=== PATIENT | male | born 1955 | race Caucasian/White ===

== ENCOUNTER 2018-11-09 06:19 | Day surgery (SDC) | payer MEDICARE, SELFPAY ==
--- NOTE | 2018-11-03 14:52 | EKG12_ITS ---
Test Reason : Blood Pressure : / mmHG Vent. Rate : 072 BPM Atrial Rate : 072 BPM P-R Int : 166 ms QRS Dur : 092 ms QT Int : 390 ms P-R-T Axes : 052 035 072 degrees QTc Int : 427 ms Normal sinus rhythm Normal ECG Confirmed by ALEKSANDR OHGAN ([id number]), legal editor PATITO MARIA ([id number]) on 11/04/2018 1:38:14 PM Referred By: Linda Bond Confirmed By:ALEKSANDR HOGAN
--- NOTE | 2018-11-03 15:10 | RAD_ITS ---
STUDY: X-RAY CHEST REASON FOR EXAM: Male, 63 years old. Preoperative evaluation. TECHNIQUE: AP and lateral views of the chest. COMPARISON: None. FINDINGS: The lungs are clear and expanded. There is no demonstrated pleural abnormality. Sternal cerclage wires and vascular clips are present from a prior sternotomy and coronary artery bypass graft procedure (CABG). Normal mediastinum and starla. Normal visualized pulmonary arteries. Normal visualized aortic arch and descending thoracic aorta. Normal visualized thoracic spine. Normal visualized ribs, clavicles, and shoulders. There is no demonstrated abnormality of the visualized soft tissue structures of the upper abdomen. RAD/Chest PA and Lateral IMPRESSION: No acute abnormality is seen. Electronically Signed: Nicolas Kemp, at 15:38 EDT , Service support ,
[2018-11-03 15:15] LABS: Absolute Lymphocyte Count 1.26 X10^3/ul (0.83-4.51); Absolute Neutrophil Count 4.3 X10^3/uL (2.0-7.7); Basophil# 0.02 X10^3/uL; Basophil% 0.3 % (0-1); Eosinophil# 0.16 X10^3/uL; Eosinophils% 2.5 % (0-5); Hematocrit 39.4 % (40-54); Hemoglobin 13.3 g/dl (13.0-16.5); Lymphocyte # 1.26 X10^3/ul (4.0); Lymphocyte % 19.7 % (19-41); Mean Corp Hgb Conc 33.8 g/gl (32-36); Mean Corpuscular Hgb 29.6 pg (27.0-32.0); Mean Corpuscular Volume 87.8 fL (80-94); Mean Platelet Vol. 10.8 fl (6.2-12.0); Monocyte# 0.63 X10^3/uL; Monocyte% 9.8 % (0-10); Neutrophil # 4.32 X10^3/uL (2.7-7.7); Neutrophil % 67.4 % (47-70); POSITIVE COUNT NO; POSITIVE DIFFERENTIAL NO; POSITIVE MORPHOLOGY NO; Platelet Count 231 K/mm3 (150-450); RBC Distribution Width CV 12.6 % (11.6-14.6); RBC Distribution Width SD 40.4 fl (35.1-43.9); Red Blood Count 4.49 M/mm3 (4.6-6.2); White Blood Count 6.4 K/mm3 (4.4-11.0)
[2018-11-03 15:37] LABS: AST(SGOT) 18 U/L (15-37); Alanine Aminotransfer ALT/SGPT 26 U/L (16-61); Albumin, Serum 3.3 g/dL (3.2-5.0); Alkaline Phosphatase 93 U/L (45-117); Anion Gap 8 (5-15); BUN 20 mg/dL (7-18); Calcium,Total 8.8 mg/dL (8.5-10.1); Chloride 103 mmol/L (98-107); EST Glomerular Filtration Rate 80 mL/min (>60); Est Glom Filt Rate - Afr Amer 97 mL/min (>60); Globulin 3.9 g/dL (2.2-4.2); Glucose 163 mg/dL (74-106); Potassium 3.7 mmol/L (3.5-5.1); Protein, Total 7.2 g/dL (6.4-8.2); Sodium Level 138 mmol/L (136-145)
[2018-11-09] VITALS (7 sets, daily range): BP systolic 118–141; BP diastolic 69–87; PULSE 60–80; RESP 16–18; TEMP 36.2–36.6; O2SAT 93–98; BMI 34.7
--- NOTE | 2018-11-09 07:19 | PCM.HP.STD ---
History of Present Illness Date of Admission: 11/09/18 The patient is a 63 year old M [] Past Medical History Allergies No Known Allergies Allergy (Verified 11/08/18 08:22) Home Medications: Ambulatory Orders Medication Instructions Recorded Acetaminophen [Tylenol Extra 500 - 1,000 mg PO Q6H PRN PRN 11/08/18 Strength] Aspirin [Aspirin EC] 81 mg PO DAILY 11/08/18 Atorvastatin Calcium [Lipitor] 40 mg PO QHS 11/08/18 Baclofen 40 mg PO 1400 11/08/18 Baclofen 40 mg PO 2000 11/08/18 Baclofen 60 mg PO 0611/08/18 Carvedilol [Coreg] 12.5 mg PO BID 11/08/18 Doxazosin Mesylate [Cardura] 8 mg PO DAILY 11/08/18 Lisinopril/Hydrochlorothiazide 1 ea PO DAILY 11/08/18 [Lisinopril-Hctz 20-25 mg Tab] Multivitamin [Daily Multiple 1 ea PO DAILY 11/08/18 Vitamin] Oxybutynin [Ditropan] 5 mg PO TID 11/08/18 Ranitidine [Zantac] 150 mg PO BID 11/08/18 Smoking Status: Never smoker Tobacco Use: Non-smoker VTE Information - Inpt Only VTE Present on Admission: No VTE Mechan Device Prophylaxis: SCD's VTE Pharm Prophylaxis ordered?: Yes Assessment/Plan DOS H & P Update: I have re-examined the patient and there are no notable changes since prior examination. See 10/25/2018 note.
[2018-11-09] MEDS: Cefazolin 2 GM in 0.9% Normal Saline 100 ML IV (08:14)
--- NOTE | 2018-11-09 08:20 | RAD_ITS ---
STUDY: X-RAY - RIGHT ANKLE REASON FOR EXAM: Male, 63 years old. Intraoperative imaging. TECHNIQUE: 17 fluoroscopic view(s) of the ankle. COMPARISON: None. FINDINGS: Intraoperative imaging provided for open reduction and internal fixation of the medial and lateral malleolar fractures. There is good alignment. RAD/Ankle min 3 Views IMPRESSION: Intraoperative imaging provided for open reduction and fixation of the bimalleolar fracture. There is good alignment. Electronically Signed: Nicolas Kemp, at 13:10 EDT , Service support ,
--- NOTE | 2018-11-09 13:01 | RAD_ITS ---
STUDY: X-RAY - RIGHT ANKLE REASON FOR EXAM: Male, 63 years old. Open reduction and internal fixation of the trimalleolar fracture. TECHNIQUE: 3 view(s) of the ankle. COMPARISON: Comparison is made with prior intraoperative examination. FINDINGS: There is satisfactory open reduction internal fixation of the medial and lateral malleoli. Postoperative soft tissue changes. RAD/Ankle min 3 Views IMPRESSION: Satisfactory ORIF of the medial and lateral malleoli. Postoperative soft tissue changes. Electronically Signed: Nicolas Kemp, at 14:17 EDT , Service support ,
--- NOTE | 2018-11-09 13:02 | RAD_ITS ---
STUDY: X-RAY - RIGHT TIBIA AND FIBULA REASON FOR EXAM: Male, 63 years old. Fibular fracture. TECHNIQUE: 2 view(s) of the tibia and fibula were obtained. COMPARISON: None. FINDINGS: Normal visualized tibia. Nondisplaced oblique fracture of the proximal metaphysis of the fibula. The soft tissue structures are unremarkable. RAD/Tibia & Fibula 2 Views IMPRESSION: Nondisplaced oblique fracture of the proximal metaphysis of the fibula. Electronically Signed: Nicolas Kemp, at 14:18 EDT , Service support ,
--- NOTE | 2018-11-09 13:04 | DCINST_ITS ---
Discharge Activity: May Not Drive, May not drive while taking narcotic pain medications., May Not Shower, May Take a Tub Bath, Use Walker, Use Crutches Ice area for (Minutes): 20 - Apply ice behind right knee 20 minutes of each hour while awake Weight Bearing Status: No weight bearing Keep extremity elevated above heart level: Operative Extremity Call your doctor if your incision/area has: Sudden Increased Bleeding Call your doctor if you observe: Fever of 101 or Higher, Inability to urinate, Shortness of breath, Dizziness, Chest pain, Increased palpitations (irregular heartbeat), Calf discomfort, Uncontrolled pain Cleanse incision/area with: Keep Dressing Clean & Dry Allergies/Adverse Reactions: Allergies No Known Allergies Allergy (Verified 11/08/18 08:22) Medications to take at Discharge Acetaminophen [Tylenol] 500 - 1,000 mg PO Q6H PRN PRN 11/08/18 Aspirin [Aspirin EC] 81 mg PO DAILY 11/08/18 Atorvastatin Calcium [Lipitor] 40 mg PO QHS 11/08/18 Baclofen 40 mg PO 1400 11/08/18 Baclofen 40 mg PO 199911/08/18 Baclofen 60 mg PO 0611/08/18 Carvedilol [Coreg (Beta Waylon)] 12.5 mg PO BID 11/08/18 Doxazosin Mesylate [Cardura] 8 mg PO DAILY 11/08/18 Lisinopril/Hydrochlorothiazide [Lisinopril-Hctz 20-25 mg Tab] 1 ea PO DAILY 11/08/18 Multivitamin [Daily Multiple Vitamin] 1 ea PO DAILY 11/08/18 Oxybutynin [Ditropan] 5 mg PO TID 11/08/18 Ranitidine [Zantac] 150 mg PO BID 11/08/18 traMADol [Ultram] 50 mg PO Q4H PRN PRN 7 Days #28 tab 11/09/18 The following prescriptions were given: traMADol [Ultram] 50 mg PO Q4H PRN PRN 7 Days #28 tab PRN Reason: pain Prescription Printed Primary Care Physician: Barby Sloan MD [Primary Care Provider] - Please follow up with your Primary Care Physician in: 7-10 days from surgery Test Results: Test results from this visit will be discussed in further detail at your follow- up appointment, if applicable. Please Follow Up With: Linda Bond DPM - Please follow up at your previously scheduled post operative appointment Proposed Discharge Date: 11/09/18
--- NOTE | 2018-11-09 13:10 | OP.PCM_ITS ---
Report of Operation Date of Procedure: 11/09/18 Pre-Operative Diagnosis: R PER 4 trimalleolar ankle fracture; R lower extremity equinus; Post-Operative Diagnosis: same Surgery/Procedure Performed:: R gastroc recession, R ORIF PER 4 trimalleolar fracture ecology teacher: Kylah De Dios Type of Anesthesia:: General/Regional Estimated Blood Loss (mL): minimal Description of Procedure: Indications: Pt is a 63 yo who sustained a right pronation external rotation 4 ankle fracture after a fall down stairs at his home on 10/24/2018. Patient was seen in an outside ER and splinted. He was seen for follow up in my clinic. Patient was sent for a CT scan of the RLE on 10/29/2018 for surgical planning. Patient has a past medical hx significant for Hereditary Spastic Paraplegia. Prior to surgery I spoke with his specialist at [facility] regarding any intra-operative or post operative concerns. He agreed that with his spasms, despite a high dose of Baclofen, he may benefit from a gastroc recession to reduce the impact of his Achilles. This was discussed with the patient and his and added to the surgical plan along with ORIF. Patient was also seen by his primary care physician for risk stratification and medical clearance prior to surgery. Pt would like surgical intervention today. All risks, complications, and alternatives were discussed with the patient, and the patient signed an informed consent. No guarantees were given. Procedure: On 11/09/2018, Eddie Stephen was visually and verbally identified in the preoperative holding area. The consent form was again reviewed with the patient, as were all risks, complications, and alternatives and the patient wished to proceed with the proposed surgery. The right ankle was marked as the correct operative extremity. The patient was brought to the operating room and placed on the operating room table in the normal SUPINE position. After induction by anesthesia, a surgical time out was performed and all present were in agreement. a pneumatic thigh tourniquet was then placed. At this time the right lower extremity was prepped and draped in the usual sterile fashion. after exsanguination with an esmarch the tourniquet was inflated to 300 mmHg. At this time attention was directed to the right medial calf. Using a #15 blade a linear incision was made at the myotendenious junction of the gastroc. The incision was bluntly carried deep through the subcutaneous tissues and fascia with careful attention paid to all bleeders, which were clamped and tied or bovied as necessary. All vital neurovascular structures were retracted. Using a #15 blade and scissors a gastroc recession was performed under tension of the ankle and release was felt with the recession. The incision was flushed with NSS and closure was initiated. 2.0 vicryl was used to close the fascia, 3.0 vicryl was used for the subcutaneous tissue and 3.0 prolene of the skin closure. Attention was then directed to the medial malleolus. Using a fresh #15 lade a curvilinear incision was made over the medial malleolus. The incision was bluntly carried deep through the subcutaneous tissues and fascia with careful attention paid to all bleeders, which were clamped and tied or bovied as necessary. All vital neurovascular structures were retracted. The fracture was identified and debrided of any impinging soft tissue. The fracture was reduced and held with a temporary k wire. Good alignment was noted. A Cynthia Y plate was then placed with distal locking screws first. Plate placement and compression screw placement and length was confirmed under intraoperative fluoroscopy. Proximal locking screws were then placed after good compression was noted. The temporary k wire was removed. The incision was flushed with the copious amounts of NSS and closure was initiated. 2.0 vicryl was used for deep tissues, 3.0 vicryl for subcutaneous tissues and 3.0 prolene for skin. These two incisions were then covered with an opt-site dressing so that they remained sterile as we changed positioning for the remainder of the procedure. We then moved the patient to a lateral decubitus position, which was well padded and secured. The RLE was then again prepped and draped in a normal sterile fashion. During the transition the tourniquet was deflated with good capillary refill of all digits noted. It was deflated for 20 minutes. At this time the right lower extremity was prepped and draped in the usual sterile fashion. after exsanguination with an esmarch the tourniquet was inflated to 300 mmHg. Attention was the turned to the posterolateral ankle. Using a fresh #15 blade, a linear incision was made approximately mid way between the lateral border of the Achilles and the most posterior border of the peroneal tendons. The incision was bluntly carried deep through the subcutaneous tissues and fascia with careful attention paid to all bleeders, which were clamped and tied or bovied as necessary. All vital neurovascular structures were retracted. A vessel loop was placed around the neurovascular structure to aid in protection. The posterior malleolus structure was identified. A large malleolar clamp was then placed to reduce the syndesmosis as the CT scan identified displacement of the anterior tibia. Two guidewires were then placed from posterior to anterior under intra operative fluoroscopy. Two 4.0 cannulated screws were then placed under intraoperative fluoroscopy per AO technique. The malleolar reduction clamp was then removed. Throughout the procedure I did evaluate the position of the proximal fibular fracture on fluoroscopy. It remained in good alignment and with the fibula out to length. To maintain this I placed a 3 hold plate on the posterolateral fibula after re-applying the malleolar reduction clamp to again aid in reduction of the tibiofibular joint. Intraoperative fluoroscopy was used for plate placement and to confirm screw length. The incision was then flushed and closure was ini tiated. 2.0 vicryl was used for deep tissues, 3.0 vicryl was used for subcutaneous tissues and 3.0 prolene for skin closure. The opt-sites were removed from the medial incisions Betadine soaked adaptic was applied to all incisions. Dry sterile dressings were applied and then a multi layer compressive dressing was placed to aid in reduction of edema and pain as well as to aid in stability. A well padded posterior splint was then placed. Total tourniquet time was 203 minutes. The tourniquet was deflated after 83 minutes as we re-draped the patient for a position change. immediate capillary refill was noted to all digits upon deflation. After 20 minutes the tourniquet was re-inflated for an additional 120 minutes. Immediate capillary refill was noted to all digits upon deflation. Intra operative fluoroscopy was utilized throughout the case, > 1 hour, to aid in visualization and confirmation of fracture reduction and screw and plate fixations. Interpretation of the images was vital to my decision making process. The patient tolerated the procedure and anesthesia well. The patient was then transported to the postanesthesia care unit by a member of the anesthesia team and myself with all vital signs stable and neurovascular status of the right lower extremity equal to pre-operative levels. At the end of the case all sponge, needle and instrument counts were found to be correct. Grafts/Implants Used: Clinton plates and screws - Complications none - Admit VTE Documentation VTE Present on Admission: No VTE Mechan Device Prophylaxis: SCD's, Knee High JOHN Hose VTE Pharm Prophylaxis ordered?: Yes
== END 2018-11-09 15:35 | disposition home or self-care (01) ==
LOC: SDC 06:20 → AC 06:20
PROVIDERS: Family Provider Student in an Organized Health Care Education/Training Program; PCP Student in an Organized Health Care Education/Training Program; Referring Provider Podiatrist Foot & Ankle Surgery; Visit Provider Podiatrist Foot & Ankle Surgery
PROC: (CPT 27687; principal; 2018-11-09 08:00)
DX: S82.871A Displaced pilon fracture of right tibia, initial encounter for closed fracture (principal); S82.861A Displaced Maisonneuve's fracture of right leg, initial encounter for closed fracture; S93.431A Sprain of tibiofibular ligament of right ankle, initial encounter; G11.4 Hereditary spastic paraplegia; M19.90 Unspecified osteoarthritis, unspecified site; I25.2 Old myocardial infarction; I10 Essential (primary) hypertension; E78.00 Pure hypercholesterolemia, unspecified; G47.30 Sleep apnea, unspecified; K21.9 Gastro-esophageal reflux disease without esophagitis; Z85.828 Personal history of other malignant neoplasm of skin; Z85.048 Personal history of other malignant neoplasm of rectum, rectosigmoid junction, and anus; Z95.1 Presence of aortocoronary bypass graft; Z79.82 Long term (current) use of aspirin; Z79.899 Other long term (current) drug therapy; W10.9XXA Fall (on) (from) unspecified stairs and steps, initial encounter; Y93.01 Activity, walking, marching and hiking; Y92.009 Unspecified place in unspecified non-institutional (private) residence as the place of occurrence of the external cause; Y99.8 Other external cause status
CPT/HCPCS: 27687; 27822; 36415; 71046; 73590; 73610; 76000; 80048; 80076; 85025; 93005; C1713; J7120; J2405

== ENCOUNTER 2024-01-01 02:35 | Emergency (ER) | payer MEDICARE, SELFPAY ==
[2024-01-01] VITALS (8 sets, daily range): BP systolic 103–151; BP diastolic 66–84; PULSE 51–78; RESP 12–17; TEMP 35.8–36.6; O2SAT 94–100; BMI 37.7
--- NOTE | 2024-01-01 02:58 | CT_ITS ---
EXAM: CT HEAD WITHOUT INTRAVENOUS CONTRAST CLINICAL INDICATION: fall TECHNIQUE: Multiple axial images were obtained of the head without intravenous contrast. This CT exam was performed using one or more of the following dose reduction techniques: automated exposure control, adjustment of the mA and/or kV according to patient size, and/or use of iterative reconstruction technique. COMPARISON: No relevant prior studies available. FINDINGS: BRAIN AND EXTRA-AXIAL SPACES: Diffuse parenchymal atrophy. No intra- or extra-axial hemorrhage. No evidence of acute infarct. No intracranial mass or mass effect. There is preservation of the sanchez/white matter interface. Posterior fossa structures are unremarkable. No hydrocephalus. Basal cisterns are patent. BONES/JOINTS: Unremarkable. No discrete lytic or blastic abnormalities. No acute calvarial fracture. SINUSES: Unremarkable as visualized. Clear. MASTOID AIR CELLS: Unremarkable. Clear. ORBITS: Visualized globes, extraocular muscles, optic nerves and retrobulbar fat appear unremarkable. CT/Brain/Head without Contrast IMPRESSION: No acute calvarial fracture or acute intracranial hemorrhage. AIDOC was utilized to assist in identifying pertinent positive findings. Electronically Signed: Jules Karimi MD at 3:33 EDT ,
--- NOTE | 2024-01-01 02:58 | CT_ITS ---
EXAM: CT LUMBAR SPINE WITHOUT INTRAVENOUS CONTRAST CLINICAL INDICATION: back pain TECHNIQUE: Helically acquired images were obtained of the lumbar spine without intravenous contrast. 2D reformats were reviewed. CTDIvol = ( 31.55 ) mGy, DLP = ( 1247.92 ) mGycm This CT exam was performed using one or more of the following dose reduction techniques: automated exposure control, adjustment of the mA and/or kV according to patient size, and/or use of iterative reconstruction technique. COMPARISON: No relevant prior studies available. FINDINGS: VERTEBRAE: Unremarkable. No traumatic subluxation. No acute or healing fracture or other malalignment. No other unusual lytic or sclerotic lesions of bone. No soft tissue masses. DISCS/SPINAL CANAL/NEURAL FORAMINA: Severe degenerative disc disease at L5-S1. Associated moderate degenerative neural foraminal stenosis at L5-S1 bilaterally. No critical central canal stenosis. VASCULATURE: Visualized abdominal aorta is not dilated. LYMPH NODES: Unremarkable. No retroperitoneal adenopathy. CT/Spine Lumbar without Contrast IMPRESSION: Severe degenerative disc disease at L5-S1. Associated moderate degenerative neural foraminal stenosis at L5-S1 bilaterally. Electronically Signed: Jules Karimi MD at 4:56 EDT ,
--- NOTE | 2024-01-01 02:58 | RAD_ITS ---
EXAM: XR RIGHT HIP WITH PELVIS WHEN PERFORMED, 2 OR 3 VIEWS CLINICAL INDICATION: pain TECHNIQUE: Two or three views of the right hip with pelvis when performed. COMPARISON: No relevant prior studies available. FINDINGS: [id number] osteoarthrosis involving the left hip. Mild degenerative changes involving the right hip. No acute or healing fracture or malalignment. No other unusual lytic or sclerotic lesions of bone. Atherosclerotic calcifications projecting below right groin region or right ischial tuberosity. RAD/HIP, UNI W/ Pelvis 2-3 Views IMPRESSION: Moderate to severe osteoarthritis of the left hip. No acute or healing fracture or malalignment. Electronically Signed: Jules Karimi MD at 3:47 EDT ,
[2024-01-01 03:07] LABS: Absolute Lymphocyte Count 1.41 X10^3/uL (0.83-4.51); Absolute Neutrophil Count 7.9 X10^3/uL (2.0-7.7); Basophil# 0.05 X10^3/uL; Basophil% 0.5 % (0-1); Eosinophil# 0.06 X10^3/uL; Eosinophils% 0.6 % (0-5); Hematocrit 39.9 % (40-54); Hemoglobin 13.4 g/dL (13.0-16.5); Lymphocyte # 1.41 X10^3/ul (0.83-4.51); Lymphocyte % 13.4 % (19-41); Mean Corp Hgb Conc 33.6 g/dL (32-36); Mean Corpuscular Hgb 29.8 pg (27.0-32.0); Mean Corpuscular Volume 88.7 fL (80-94); Monocyte# 1.05 X10^3/uL; NRBC Flagged by Analyzer 0 % (0-5); Neutrophil % 74.8 % (47-70); Platelet Count 206 K/mm3 (150-450); RBC Distribution Width CV 12.6 % (11.6-14.6); White Blood Count 10.5 K/mm3 (4.4-11.0)
[2024-01-01 03:07] LABS: Blood Gas Specimen Type VEN; O2 Delivery Device Not entered; SITE Not entered; VBG BASE EXCESS 1 mmol/L (-1.0-3.5); VBG Bicarbonate 26 mmol/L (22-26); VBG PO2 46 mmHg (25-40); VBG SO2 79 % (50-70); VBG TCO2 28 mmol/L (23-33); VBG pCO2 45.9 mmHg (41-51); VBG pH 7.36 (7.32-7.42)
[2024-01-01 03:09] LABS: Bedside Glucose 147 mg/dL (74-106)
[2024-01-01 03:27] LABS: Anion Gap 7 (5-15); BUN 36 mg/dL (7-18); CPK Total, Creatine Kinase 81 U/L (39-308); Calcium,Total 9.3 mg/dL (8.5-10.1); Chloride 101 mmol/L (98-107); EST Glomerular Filtration Rate 40 mL/min (>60); Est Glom Filt Rate - Afr Amer 49 mL/min (>60); Estimated Creatinine Clearance 50.01 ml/min; Glucose 166 mg/dL (74-106); Magnesium 2.4 mg/dL (1.6-2.6); Potassium 4.5 mmol/L (3.5-5.1); Sodium Level 134 mmol/L (136-145); Thyroid Stim Hormone (TSH) 0.847 uIU/mL (0.358-3.740)
[2024-01-01 03:55] LABS: Mucous, Urine 0 SEEN /hpf (<or=2+); Red Blood Cells-Urine 0 SEEN /hpf (0-5); Squamous Epithelial Cells - UA 0 SEEN /hpf (0-5)
[2024-01-01 03:57] LABS: Color, Urine Yellow (Yellow); Glucose, Dipstick Normal (Normal); Ketone-Dipstick Negative (Negative); Leukocyte Esterase-Dipstick 25 /ul (Negative); Nitrite-Dipstick Negative (Negative); Occult Blood-Urine Negative /ul (Negative); Protein-Dipstick 15 mg/dl (Negative); Urine Bilirubin Dipstick Negative (Negative); Urine Clarity Clear (Clear); Urine Urobilinogen Normal (Normal)
[2024-01-01 04:06] LABS: White Blood Cells 0-5 SEEN /hpf (0-5)
[2024-01-01 04:07] LABS: Bacteria RARE /hpf (None Seen); Hyaline Cast 0-5 SEEN /lpf (0-5)
[2024-01-01] MEDS: 0.9% Normal Saline (1000mL) 1,000 ML 999 ML IV (04:11)
--- NOTE | 2024-01-01 05:19 | EDS_ITS ---
HPI History of Present Illness Chief Complaint: Alt LOC Informant: patient and EMS Narrative Narrative: Patient is a 68-year-old male with past medical history of hypertension hyperlipidemia and hereditary spastic paraplegia. He states that he has had a congenital disorder since a young age. He reports that because of this he has difficulty walking at baseline. He states that he fell yesterday at an auction and then he also phoned this morning around 1:30 AM when he got up to use the restroom. He denies striking his head or any loss of consciousness. He states there is no history of bleeding disorder or blood thinner use. He reports that he has mild pain along his right hip. He states that after the fall at home he could not get up and secondary to this his called EMS and was brought in for evaluation. [facility] Medical History GERD (gastroesophageal reflux disease) History of rectal cancer ALBERTO on CPAP HLD (hyperlipidemia) CAD (coronary artery disease) Non-smoker Hypertension Hereditary spastic paraplegia CHF (congestive heart failure) Home Medications ?Medication ?Instructions ?Recorded ?Last Taken ?Type acetaminophen 500 mg tablet 500 - 1,000 mg PO Q6H PRN PRN Pain 11/08/18 Unknown History aspirin 81 mg tablet,delayed 81 mg PO DAILY 11/08/18 Unknown History release atorvastatin 40 mg tablet 40 mg PO QHS 11/08/18 Unknown History baclofen 20 mg tablet 40 mg PO 1400 11/08/18 Unknown History baclofen 20 mg tablet 40 mg PO 2000 11/08/18 Unknown History baclofen 20 mg tablet 60 mg PO 0600 11/08/18 11/09/18 History 60 MG doxazosin 8 mg tablet 4 mg PO DAILY 11/08/18 11/09/18 History 8 MG oxybutynin chloride 5 mg tablet 5 mg PO TID 11/08/18 Unknown History carvedilol 3.125 mg tablet 3.125 mg PO BID 01/01/24 Unknown History carvedilol 6.25 mg tablet 6.25 mg PO BID 01/01/24 Unknown History famotidine 20 mg tablet (Acid 20 mg PO DAILY 01/01/24 Unknown History Controller) furosemide 40 mg tablet 40 mg PO DAILY 01/01/24 Unknown History gabapentin 400 mg capsule 400 mg PO TID 01/01/24 Unknown History lisinopril 20 mg tablet 20 mg PO DAILY 01/01/24 Unknown History klcahhac-rps-dirxg acid 500 1 tab PO DAILY 01/01/24 Unknown History mcg-lycopene 300 mcg-lutein 250 mcg tablet (A Thru Z Select) Allergy/AdvReac Type Severity Reaction Status Date / Time No Known Allergies Allergy Verified 11/08/18 08:22 Family History (Updated 01/01/24 @ 02:[address] Jolie Isaacs MD) Father Heart disease Hypertension Mother Osteoarthritis Surgical History (Updated 01/01/24 @ 02:[address] Jolie Isaacs MD) History of ankle surgery History of tonsillectomy and adenoidectomy History of rectal surgery Hx of CABG H/O hand surgery Social History (Updated 01/01/24 @ 02:[address] Jolie Isaacs MD) household members: significant other Smoking Status: Never smoker alcohol intake: current alcohol intake frequency: holidays/special occasions only substance use type: does not use ROS ROS ED Constitutional Constitutional ED: Denies chills or fever(s) Eyes Eyes: Denies blurry vision or change in vision ENT ENT ED: Denies sore throat Cardiovascular Cardiovascular: Reports other Details: Negative syncope ; Denies chest pain, palpitations or racing heartbeat Respiratory/Chest Respiratory/Chest: Denies cough or dyspnea Gastrointestinal Gastrointestinal: Denies abdominal pain, diarrhea, nausea or vomiting Genitourinary Genitourinary ED: Denies dysuria Musculoskeletal Musculoskeletal: Reports other Details: Positive right hip pain ; Denies back pain or neck pain Integumentary Denies rash Neurologic Neurologic: Reports weakness; Denies headache(s) Hematologic/Lymphatic Hematologic/Lymphatic: Denies easy bleeding or easy bruising EXAM Physical Exam Const Vital Signs: 01/01/24 02:36 01/01/24 02:41 01/01/24 03:41 Temperature 96.8 F L 96.8 F L 96.5 F L Temperature Source Temporal Temporal Temporal Pulse Rate 63 62 51 L Respiratory Rate 13 17 16 Blood Pressure 140/84 H 140/84 H 121/66 H Blood Pressure Mean 102 102 84 Pulse Ox 95 97 94 Oxygen Delivery Method Room Air Room Air Room Air 01/01/24 04:00 01/01/24 05:00 Temperature 96.5 F L 96.8 F L Temperature Source Temporal Temporal Pulse Rate 51 L 59 L Respiratory Rate 12 17 Blood Pressure 129/78 H 103/71 Blood Pressure Mean 95 81 Pulse Ox 100 98 Oxygen Delivery Method Room Air Room Air Positive well nourished and well developed General Appearance ED: well developed; Negative for pallor HEENT Reports dry mucous membranes HEENT Narrative: Mucous membranes are dry and tacky No secondary changes in the posterior pharynx to suggest infection No airway edema or compromise Mouth ED: Yes dry mucous membranes Mouth: dry mucous membranes Eyes PERRL and EOMs intact bilaterally General Eye ED: Negative for scleral icterus Neck supple Neck Narrative: No bony deformity or step-off of the cervical spine no midline tenderness to palpation Chest Wall palpation of chest normal Chest Narrative: No bony deformity or crepitance noted Resp normal respiratory effort and clear to auscultation bilaterally Cardio regular rate and regular rhythm GI normal to inspection, nondistended, normoactive bowel sounds, non-tender, non- distended and no masses GI Narrative: No voluntary guarding or rigidity or pulsatile mass Auscultation: normoactive bowel sounds Palpation: soft Back/Spine Back/Spine Narrative: No bony deformity or step-off of the thoracic or lumbar spine no midline tenderness to palpation Extremity normal to inspection Extremity Narrative: Pelvis is stable there is no shortening or external rotation of either lower extremity There is mild pain on palpation along the right greater trochanter. No pain on palpation of the inguinal canal/pubic rami No bony deformity or joint effusion noted. Neuro oriented x3, CN's II-XII intact bilaterally and no sensory deficits noted Neuro Narrative: Patient strengths is plus 3 out of 5 bilaterally; he can perform a straight leg raise off the bed slightly with each leg. Patient does state this is normal for him Strength in the upper extremities are 5 out of 5 bilaterally There is no focal neurologic deficit noted Sensorium / Orientation: alert Psych mental status grossly normal Skin no rashes or lesions noted Skin Narrative: Skin turgor is slightly increased General Skin Exam: Negative for jaundice or pallor MDM MDM MDM Narrative Medical decision making narrative: Patient arrived to the ER awake and alert. There was initial concern with EMS that he was altered but he is awake alert and oriented person place and time he does not have any type of focal neurologic deficit. As differential diagnosis for his weakness could be related to a brain bleed or skull fracture versus compression of a spinal nerve root from his lumbar spine versus lumbar compression fracture versus hip fracture versus infectious process versus acute blood loss anemia versus acute kidney injury I did elect to perform basic laboratory study. Labs revealed no clinically significant findings other than mild elevation to his creatinine at 1.8. Imaging studies revealed no acute signs of trauma. The patient received 1 L of IV hydration secondary to the mild elevation to his kidney function. He was walked in the ER and was able to do so and he states that this is his baseline gait which is unsteady. I discussed with patient that his workup today reveals no acute findings and that his weakness and falls are related to his hereditary spastic paraplegia which is progressive and chronic. We discussed that that he may need home health or placement in a prison secondary to his progressive disease. The patient states that he feels he is walking at his baseline gait and as he does not have signs of trauma or infection he does not wish to stay in the hospital or conside r going to a prison and therefore would like to be discharged. At this time he is awake alert and oriented he is hemodynamically stable he is able to walk under his own power and therefore I will comply with his wishes and will be discharged and strongly urged to consider home health support through his family doctor on an outpatient basis History & Record Review Discussion w/independent historian: EMS personnel and Patient Lab Data Attestation: I reviewed the patient's lab results. Labs: Laboratory Results - last 24 hr 01/01/24 01/01/24 01/01/24 02:40 02:51 03:00 WBC 10.5 RBC 4.50 L Hgb 13.4 Hct 39.9 L MCV 88.7 MCH 29.8 MCHC 33.6 RDW Std Deviation 41.0 RDW Coeff of Lorri 12.6 Plt Count 206 MPV 11.0 Immature Gran % (Auto) 0.700 Neut % (Auto) 74.8 H Lymph % (Auto) 13.4 L Esmeralda % (Auto) 10.0 Eos % (Auto) 0.6 Baso % (Auto) 0.5 Absolute Neuts (auto) 7.9 H Absolute Lymphs (auto) 1.41 Nucleated RBC % 0 Sodium 134 L Potassium 4.5 Chloride 101 Carbon Dioxide 26.0 Anion Gap 7 BUN 36 H Creatinine 1.80 H Estim Creat Clear Calc 50.01 Est GFR (MDRD) Af Amer 49 L Est GFR (MDRD) Non-Af 40 L BUN/Creatinine Ratio 20.0 Glucose 166 H Calcium 9.3 Magnesium 2.4 Ammonia 11.0 Total Creatine Kinase 81 TSH 0.847 Urine Color Urine Clarity Urine pH Ur Specific [place] Urine Protein Urine Glucose (UA) Urine Ketones Urine Occult Blood Urine Nitrite Urine Bilirubin Urine Urobilinogen Ur Leukocyte Esterase Urine RBC Urine WBC Ur Squamous Epith Cells Urine Bacteria Hyaline Casts Urine Mucus POC Glucose 147 H 01/01/24 03:52 WBC RBC Hgb Hct MCV MCH MCHC RDW Std Deviation RDW Coeff of Lorri Plt Count MPV Immature Gran % (Auto) Neut % (Auto) Lymph % (Auto) Esmeralda % (Auto) Eos % (Auto) Baso % (Auto) Absolute Neuts (auto) Absolute Lymphs (auto) Nucleated RBC % Sodium Potassium Chloride Carbon Dioxide Anion Gap BUN Creatinine Estim Creat Clear Calc Est GFR (MDRD) Af Amer Est GFR (MDRD) Non-Af BUN/Creatinine Ratio Glucose Calcium Magnesium Ammonia Total Creatine Kinase TSH Urine Color Yellow Urine Clarity Clear Urine pH 6.0 Ur Specific [place] 1.020 Urine Protein 15 H Urine Glucose (UA) Normal Urine Ketones Negative Urine Occult Blood Negative Urine Nitrite Negative Urine Bilirubin Negative Urine Urobilinogen Normal Ur Leukocyte Esterase 25 H Urine RBC 0 SEEN Urine WBC 0-5 SEEN Ur Squamous Epith Cells 0 SEEN Urine Bacteria RARE Hyaline Casts 0-5 SEEN Urine Mucus 0 SEEN POC Glucose ABG Data ABG results: ABG 01/01/24 03:03 Specimen Type CHEMO Sample Site Not entered VBG pH 7.36 VBG pO2 46 H VBG HCO3 26 VBG Total CO2 28 VBG O2 Sat (Calc) 79 H VBG Base Excess 1 POC Mix VBG pCO2 Pt Tmp 45.9 O2 Delivery Device Not entered Radiography Diagnostic Testing: Clinical Impression(s) from Imaging Studies Brain CT 01/01/24 02:58 IMPRESSION: No acute calvarial fracture or acute intracranial hemorrhage. AIDOC was utilized to assist in identifying pertinent positive findings. Electronically Signed: Jules Karimi MD at 3:33 EDT , Hip/Pelvis X-Ray 01/01/24 02:58 IMPRESSION: Moderate to severe osteoarthritis of the left hip. No acute or healing fracture or malalignment. Electronically Signed: Jules Karimi MD at 3:47 EDT , Lumbar Spine CT 01/01/24 02:58 IMPRESSION: Severe degenerative disc disease at L5-S1. Associated moderate degenerative neural foraminal stenosis at L5-S1 bilaterally. Electronically Signed: Jules Karimi MD at 4:56 EDT , Right hip with 1 view pelvis x-ray as interpreted by the emergency medicine physician reveals arthritic changes without acute fracture or dislocation Discharge Plan Triage Chief Complaint: Alt LOC ED Provider: Jules Roy Dx/Rx/DC Orders Clinical Impression: HSP (hereditary spastic paraplegia), Generalized weakness, Renal insufficiency, Hypertension, Hyperlipidemia Instructions: Understanding Spinal Cord Disease, ED Weakness (Uncertain Cause) Prescriptions: No Action atorvastatin 40 MG tablet 40 mg PO QHS aspirin 81 MG tablet,delayed release (DR/EC) 81 mg PO DAILY acetaminophen 500 MG tablet 500 - 1,000 mg PO Q6H PRN PRN (Reason: Pain) baclofen 20 MG tablet 60 mg PO 0600 baclofen 20 MG tablet 40 mg PO 1400 baclofen 20 MG tablet 40 mg PO 2000 doxazosin 8 MG tablet 4 mg PO DAILY oxybutynin chloride 5 MG tablet 5 mg PO TID furosemide 40 mg tablet 40 mg PO DAILY carvedilol 6.25 mg tablet 6.25 mg PO BID lisinopril 20 mg tablet 20 mg PO DAILY gabapentin 400 mg capsule 400 mg PO TID carvedilol 3.125 mg tablet 3.125 mg PO BID famotidine [Acid Controller] 20 mg tablet 20 mg PO DAILY A Thru Z Select 500-300-250 mcg tablet 1 tab PO DAILY Primary Care Provider: Barby Sloan Referrals: Barby Sloan MD [Primary Care Provider] - Activity Restrictions/Additional Instructions: Your workup today did not reveal any acute findings of infection or trauma indicating your weakness and falls are related to your underlying hereditary spastic paraplegia. Please discuss with your family doctor a trial of home health care or consider being placed in a assisted living or prison to further help with your activities of daily living as your strength and gait is progressively worsening Print Language: Senegalese Disposition Disposition: Home, Self Care
== END 2024-01-01 07:09 | disposition home or self-care (01) ==
PROVIDERS: Emergency Provider Emergency Medicine; PCP Student in an Organized Health Care Education/Training Program; Visit Provider Emergency Medicine
DX: G11.4 Hereditary spastic paraplegia (principal); I11.0 Hypertensive heart disease with heart failure; I50.9 Heart failure, unspecified; R53.1 Weakness; I25.10 Atherosclerotic heart disease of native coronary artery without angina pectoris; E78.5 Hyperlipidemia, unspecified; N28.9 Disorder of kidney and ureter, unspecified; K21.9 Gastro-esophageal reflux disease without esophagitis; Z79.899 Other long term (current) drug therapy; M16.12 Unilateral primary osteoarthritis, left hip; R29.6 Repeated falls; Z91.81 History of falling
CPT/HCPCS: 96360; 96361; 99283; 70450; 72131; 73502; 80048; 81001; 82140; 82550; 82803; 82962; 83735; 84443; 85025; J7030; A4216

== ENCOUNTER 2024-01-04 10:05 | Inpatient (IN) | payer MEDICARE, SELFPAY ==
[2024-01-04] VITALS (11 sets, daily range): BP systolic 91–135; BP diastolic 50–92; PULSE 72–101; RESP 16–18; TEMP 36.7–39.6; O2SAT 94–98; BMI 37.4; BMI 36.1
--- NOTE | 2024-01-04 10:12 | EKG12_ITS ---
Test Reason : GENERAL Blood Pressure : / mmHG Vent. Rate : 074 BPM Atrial Rate : 074 BPM P-R Int : 164 ms QRS Dur : 088 ms QT Int : 334 ms P-R-T Axes : 029 028 079 degrees QTc Int : 370 ms Normal sinus rhythm Nonspecific T wave abnormality Abnormal ECG Confirmed by SELENE CRESPO, TIMOTHY ([id number]), editor farm journal KEN PINEDA ([id number]) on 01/05/2024 7:35:06 AM Referred By: Confirmed By:TIMOTHY MORTON MD
--- NOTE | 2024-01-04 10:14 | EDS_ITS ---
HPI History of Present Illness Chief Complaint: Weakness Informant: patient, spouse/S.O. and EMS Narrative Narrative: 68-year-old male presenting to the emergency room with generalized weakness. Reportedly the patient has been feeling weak for about a week. He was seen early Thursday morning following a fall. EMS notes hypotension. Patient states that he has a burning pain in the right lateral thigh which began and route to the hospital. He was able to eat breakfast this morning. Patient denies any fevers. He denies any significant cough. He notes no change in chronic leg swelling. No new medications. [facility] Medical History GERD (gastroesophageal reflux disease) History of rectal cancer ALBERTO on CPAP HLD (hyperlipidemia) CAD (coronary artery disease) Non-smoker Hypertension Hereditary spastic paraplegia CHF (congestive heart failure) Home Medications ?Medication ?Instructions ?Recorded ?Last Taken ?Type aspirin 81 mg tablet,delayed 81 mg PO DAILY HEART HEALTH 11/08/18 01/04/24 History release atorvastatin 40 mg tablet 40 mg PO DAILY CHOLESTEROL 11/08/18 01/04/24 History baclofen 20 mg tablet 40 mg PO 1400 MUSCLE SPASMS 11/08/18 01/03/24 History baclofen 20 mg tablet 40 mg PO 2000 MUSCLE SPASMS 11/08/18 01/03/24 History baclofen 20 mg tablet 60 mg PO 0600 MUSCLE SPASMS 11/08/18 01/04/24 History oxybutynin chloride 5 mg tablet 5 mg PO TID OVERACTIVE BLADDER 11/08/18 01/04/24 History carvedilol 3.125 mg tablet 3.125 mg PO BID HEART 01/01/24 01/03/24 History carvedilol 6.25 mg tablet 6.25 mg PO BID HEART 01/01/24 01/03/24 History furosemide 40 mg tablet 40 mg PO DAILY EDEMA 01/01/24 01/03/24 History gabapentin 400 mg capsule 400 mg PO TID NEUROPATHY 01/01/24 01/04/24 History lisinopril 20 mg tablet 20 mg PO DAILY BLOOD PRESSURE 01/01/24 01/03/24 History duqlltlj-iky-tjjhb acid 500 1 tab PO DAILY SUPPLEMENT 01/01/24 01/04/24 History mcg-lycopene 300 mcg-lutein 250 mcg tablet (A Thru Z Select) doxazosin 4 mg tablet 4 mg PO DAILY BLOOD PRESSURE 01/04/24 01/04/24 History Allergy/AdvReac Type Severity Reaction Status Date / Time No Known Allergies Allergy Verified 01/04/24 10:06 Family History Father Heart disease Hypertension Mother Osteoarthritis Surgical History History of ankle surgery History of tonsillectomy and adenoidectomy History of rectal surgery Hx of CABG H/O hand surgery Social History household members: significant other Smoking Status: Never smoker alcohol intake: current alcohol intake frequency: holidays/special occasions only substance use type: does not use ROS ROS ED ROS Narrative Generalized weakness Constitutional Constitutional ED: Denies chills, fever(s) or weight loss Eyes Eyes: Denies change in vision or diplopia ENT ENT ED: Denies ear pain, rhinorrhea or sore throat Cardiovascular Cardiovascular: Denies chest pain, orthopnea, palpitations or racing heartbeat Respiratory/Chest Respiratory/Chest: Denies cough, dyspnea or orthopnea Gastrointestinal Gastrointestinal: Denies abdominal pain, diarrhea, nausea or vomiting Genitourinary Genitourinary ED: Denies dysuria, hematuria or urinary frequency Musculoskeletal Musculoskeletal: Reports other Details: Chronic leg swelling ; Denies arthralgias or myalgias Integumentary Denies abscess or rash Neurologic Neurologic: Denies headache(s) or weakness Psychiatric Psychiatric: Denies anxiety, depression, suicidal ideation or suicidal thoughts Endocrine Endocrinology: Denies polydipsia, polyphagia or polyuria Allergic/Immunologic Allergic/Immunologic ED: Denies mouth swelling, tongue swelling or urticaria EXAM Physical Exam Narrative Exam Narrative: Smell of urine from patient Const Vital Signs: 01/04/24 10:06 01/04/24 10:06 01/04/24 10:12 Temperature 98.2 F 98.2 F Temperature Source Oral Oral Pulse Rate 74 Respiratory Rate 18 Respiratory Pattern Normal Blood Pressure 92/56 L Blood Pressure Mean 68 Pulse Ox 96 Oxygen Delivery Method Room Air Oxygen Flow Rate (L/min) 01/04/24 11:31 01/04/24 11:47 01/04/24 11:55 Temperature 98.0 F 98.2 F Temperature Source Oral Pulse Rate 74 91 Respiratory Rate 18 18 Respiratory Pattern Blood Pressure 110/71 121/77 H 111/64 Blood Pressure Mean 84 91 79 Pulse Ox 96 98 Oxygen Delivery Method Room Air Oxygen Flow Rate (L/min) 01/04/24 12:35 01/04/24 12:46 Temperature Temperature Source Pulse Rate 80 Respiratory Rate 16 Respiratory Pattern Blood Pressure 113/67 129/62 H Blood Pressure Mean 82 84 Pulse Ox 94 Oxygen Delivery Method Nasal Cannula Oxygen Flow Rate (L/min) 2 Positive well nourished and well developed General Appearance ED: well developed HEENT Reports normocephalic, head/scalp atraumatic and moist mucous membranes Eyes PERRL and EOMs intact bilaterally Neck no lymphadenopathy, supple and no JVD Resp normal respiratory effort and clear to auscultation bilaterally Cardio regular rate, regular rhythm and no murmurs GI normal to inspection, nondistended, normoactive bowel sounds and non-tender Palpation: soft Back/Spine no CVA tenderness and normal ROM Extremity General Extremety ED: Yes edema General Extremity: edema bilateral lower extremity Details: moderate Neuro oriented x3 and CN's II-XII intact bilaterally Sensorium / Orientation: alert Motor Exam: strength 5/5 throughout Psych mental status grossly normal Mood & Affect: Negative for depressed or tearful Skin no rashes or lesions noted and no wounds MDM MDM MDM Narrative Medical decision making narrative: Differential diagnosis includes but not limited to UTI dehydration electrolyte abnormality uremia anemia pneumonia sepsis congestive heart failure Patient received IV fluids blood pressure is improved. Patient has sleep apnea and was hypoxic while sleeping and was given supplemental oxygen. White count 16.9 with 83.4 neutrophils INR 1.2 PTT 38.6 creatinine slightly elevated off baseline 1.85 BUN of 24 lactic acid slightly elevated 2.2 anion gap is 10 CO2 of 26 normal liver enzymes and lipase. Patient required catheterization for urine specimen as he has been incontinent. This demonstrates 3+ bacteria 10-25 white cells 0-5 red cells negative nitrates. Blood and urine cultures were obtained. Patient received a dose of Rocephin. Our plan will be admission into hospital. History & Record Review Discussion w/independent historian: EMS personnel, Patient and Significant other Additional record(s) reviewed:: Prior ED visit and Prior labs Lab Data Attestation: I reviewed the patient's lab results. Labs: Laboratory Results - last 24 hr 01/04/24 01/04/24 01/04/24 10:20 10:22 11:41 WBC 16.9 H RBC 4.62 Hgb 13.6 Hct 41.0 MCV 88.7 MCH 29.4 MCHC 33.2 RDW Std Deviation 42.7 RDW Coeff of Lorri 13.2 Plt Count 179 MPV 10.9 Immature Gran % (Auto) 0.600 Neut % (Auto) 83.4 H Lymph % (Auto) 5.5 L [place] % (Auto) 10.0 Eos % (Auto) 0.1 Baso % (Auto) 0.4 Absolute Neuts (auto) 14.1 H Absolute Lymphs (auto) 0.93 Nucleated RBC % 0 Diff Path Review August foll PT 15.5 H INR 1.2 APTT 38.6 H Sodium 134 L Potassium 3.6 Chloride 98 Carbon Dioxide 26.0 Anion Gap 10 BUN 24 H Creatinine 1.85 H Estim Creat Clear Calc 48.46 Est GFR (MDRD) Af Amer 47 L Est GFR (MDRD) Non-Af 39 L BUN/Creatinine Ratio 13.0 Glucose 134 H Lactic Acid 2.2 H* Calcium 9.4 Total Bilirubin 1.00 Direct Bilirubin 0.40 H AST 17 ALT 23 Alkaline Phosphatase 75 Troponin I High Sens 8 Total Protein 7.1 Albumin 3.0 L Globulin 4.1 Lipase 11 L Urine Color Yellow Urine Clarity Sl. Cloudy Urine pH 5.0 Ur Specific [place] 1.020 Urine Protein 30 H Urine Glucose (UA) Normal Urine Ketones Negative Urine Occult Blood 10 H Urine Nitrite Negative Urine Bilirubin Negative Urine Urobilinogen 1 H Ur Leukocyte Esterase 500 H Urine RBC 0-5 SEEN Urine WBC 10-25 SEEN Ur Squamous Epith Cells 0 SEEN Urine Bacteria 3+ Urine Mucus 0 SEEN Radiography Diagnostic Testing: Clinical Impression(s) from Imaging Studies Chest X-Ray 01/04/24 10:30 IMPRESSION: No radiographic evidence of acute cardiopulmonary disease. Electronically Signed: Jasvir Magana MD at 11:05 EDT , EKG Initial EKG: Attestation: I personally reviewed and interpreted this EKG as follows: Comments: Normal sinus rhythm ventricular rate of 74 bpm. Management Discussion w/another healthcare provider: Hospitalist (Dr Hartley) Discharge Plan Dx/Rx/DC Orders Clinical Impression: Acute UTI, Generalized weakness, Renal insufficiency, AMS (altered mental status) Disposition Disposition: Acute Care Hospital [facility]
[2024-01-04] MEDS: 0.9% Normal Saline (1000mL) 1,000 ML 1000 ML IV (10:16)
--- NOTE | 2024-01-04 10:30 | RAD_ITS ---
INDICATION: weakness hypotension EXAMINATION/TECHNIQUE: X-RAY - XR Chest 1 View COMPARISON: Prior study dated: 11/03/2018 FINDINGS: LINES/DEVICES: None. LUNGS: No consolidation, edema or effusion. No pneumothorax. MEDIASTINUM AND CARDIOVASCULAR STRUCTURES: Previous median sternotomy and CABG. Normal cardiac silhouette. BONES AND SOFT TISSUES: Unremarkable. RAD/Chest 1 View (Portable) IMPRESSION: No radiographic evidence of acute cardiopulmonary disease. Electronically Signed: Jasvir Magana MD at 11:05 EDT ,
[2024-01-04 10:37] LABS: Absolute Lymphocyte Count 0.93 X10^3/uL (0.83-4.51); Absolute Neutrophil Count 14.1 X10^3/uL (2.0-7.7); Basophil# 0.06 X10^3/uL; Basophil% 0.4 % (0-1); Eosinophil# 0.01 X10^3/uL; Eosinophils% 0.1 % (0-5); Hemoglobin 13.6 g/dL (13.0-16.5); Lymphocyte # 0.93 X10^3/ul (0.83-4.51); Lymphocyte % 5.5 % (19-41); Mean Corp Hgb Conc 33.2 g/dL (32-36); Mean Corpuscular Hgb 29.4 pg (27.0-32.0); Mean Corpuscular Volume 88.7 fL (80-94); Mean Platelet Vol. 10.9 fl (6.2-12.0); NRBC Flagged by Analyzer 0 % (0-5); Neutrophil # 14.13 X10^3/uL (2.7-7.7); Neutrophil % 83.4 % (47-70); POSITIVE DIFFERENTIAL YES; Platelet Count 179 K/mm3 (150-450); RBC Distribution Width CV 13.2 % (11.6-14.6); RBC Distribution Width SD 42.7 fl (35.1-43.9); Red Blood Count 4.62 M/mm3 (4.6-6.2); White Blood Count 16.9 K/mm3 (4.4-11.0)
[2024-01-04 10:38] LABS: Differential Indicated SCAN CRITERIA MET
[2024-01-04 10:50] LABS: International Normalized Ratio 1.2; Prothrombin Time (Protime)PT. 15.5 SECONDS (11.7-14.9)
[2024-01-04 10:51] LABS: Partial Thromboplast Time 38.6 Seconds (24.1-36.2)
[2024-01-04 10:56] LABS: AST(SGOT) 17 U/L (15-37); Alanine Aminotransfer ALT/SGPT 23 U/L (16-61); Alkaline Phosphatase 75 U/L (45-117); Anion Gap 10 (5-15); BUN 24 mg/dL (7-18); Calcium,Total 9.4 mg/dL (8.5-10.1); Chloride 98 mmol/L (98-107); Creatinine, Serum 1.85 mg/dL (0.70-1.30); EST Glomerular Filtration Rate 39 mL/min (>60); Est Glom Filt Rate - Afr Amer 47 mL/min (>60); Estimated Creatinine Clearance 48.46 ml/min; Globulin 4.1 g/dL (2.2-4.2); Glucose 134 mg/dL (74-106); Lipase 11 U/L (13-75); Potassium 3.6 mmol/L (3.5-5.1); Protein, Total 7.1 g/dL (6.4-8.2); Sodium Level 134 mmol/L (136-145); Troponin-I HS 8 pg/mL (3.0-78.0)
[2024-01-04 11:11] LABS: Lactic Acid 2.2 mmol/L (0.4-1.9)
[2024-01-04 11:50] LABS: Mucous, Urine 0 SEEN /hpf (<or=2+); Squamous Epithelial Cells - UA 0 SEEN /hpf (0-5)
[2024-01-04 11:56] LABS: Color, Urine Yellow (Yellow); Glucose, Dipstick Normal (Normal); Ketone-Dipstick Negative (Negative); Leukocyte Esterase-Dipstick 500 /ul (Negative); Nitrite-Dipstick Negative (Negative); Occult Blood-Urine 10 /ul (Negative); Protein-Dipstick 30 mg/dl (Negative); Urine Bilirubin Dipstick Negative (Negative); Urine Clarity Sl. Cloudy (Clear); Urine Urobilinogen 1 mg/dl (Normal)
[2024-01-04 12:15] LABS: Bacteria 3+ /hpf (None Seen)
[2024-01-04 12:16] LABS: Red Blood Cells-Urine 0-5 SEEN /hpf (0-5); White Blood Cells 10-25 SEEN /hpf (0-5)
[2024-01-04] MEDS: Ceftriaxone 1 GM/50 ML BAG IV (12:43)
[2024-01-04 14:33] LABS: Reflex Lactate? Y
--- NOTE | 2024-01-04 14:41 | PCM.HP.STD ---
HPI - General General Date of Admission: 01/04/24 HPI Narrative ANT SHARP, is a 68 M who presents to hospital complaining of weakness. He is noticed a slow decline over the last week or so when he actually had a fall at home on Thursday denies any significant injuries, he was seen here and initially there is nothing found on workup that he was discharged home. Today he presents with continued weakness and foul-smelling urine. No fevers or chills that he has noticed. He does not feel like his legs are more swollen than they normally are, he does have a history of a CABG with heart failure though he is unsure what type it we do not have an echo on file. He was found to have a white count of 16,000 with a UA consistent with a UTI, he was given a liter fluid bolus for low blood pressures but now he is on the higher side with systolics of 151. [facility] Medical History GERD (gastroesophageal reflux disease) History of rectal cancer ALBERTO on CPAP HLD (hyperlipidemia) CAD (coronary artery disease) Non-smoker Hypertension Hereditary spastic paraplegia CHF (congestive heart failure) Home Medications ?Medication ?Instructions ?Recorded ?Last Taken ?Type aspirin 81 mg tablet,delayed 81 mg PO DAILY HEART HEALTH 11/08/18 01/04/24 History release atorvastatin 40 mg tablet 40 mg PO DAILY CHOLESTEROL 11/08/18 01/04/24 History baclofen 20 mg tablet 40 mg PO 1400 MUSCLE SPASMS 11/08/18 01/03/24 History baclofen 20 mg tablet 40 mg PO 2000 MUSCLE SPASMS 11/08/18 01/03/24 History baclofen 20 mg tablet 60 mg PO 0600 MUSCLE SPASMS 11/08/18 01/04/24 History oxybutynin chloride 5 mg tablet 5 mg PO TID OVERACTIVE BLADDER 11/08/18 01/04/24 History carvedilol 3.125 mg tablet 3.125 mg PO BID HEART 01/01/24 01/03/24 History carvedilol 6.25 mg tablet 6.25 mg PO BID HEART 01/01/24 01/03/24 History furosemide 40 mg tablet 40 mg PO DAILY EDEMA 01/01/24 01/03/24 History gabapentin 400 mg capsule 400 mg PO TID NEUROPATHY 01/01/24 01/04/24 History lisinopril 20 mg tablet 20 mg PO DAILY BLOOD PRESSURE 01/01/24 01/03/24 History wshulurv-ren-kvmhs acid 500 1 tab PO DAILY SUPPLEMENT 01/01/24 01/04/24 History mcg-lycopene 300 mcg-lutein 250 mcg tablet (A Thru [facility]) doxazosin 4 mg tablet 4 mg PO DAILY BLOOD PRESSURE 01/04/24 01/04/24 History Allergy/AdvReac Type Severity Reaction Status Date / Time No Known Allergies Allergy Verified 01/04/24 10:06 Family History Father Heart disease Hypertension Mother Osteoarthritis Surgical History History of ankle surgery History of tonsillectomy and adenoidectomy History of rectal surgery Hx of CABG H/O hand surgery Social History household members: significant other Smoking Status: Never smoker alcohol intake: current alcohol intake frequency: holidays/special occasions only substance use type: does not use ROS Constitutional Constitutional: Reports weakness; Denies chills, fatigue, fever(s) or malaise Eyes Eyes: Denies blurry vision ENT HEENT: Denies headache(s) or nasal discharge Cardiovascular Cardiovascular: Reports edema; Denies chest pain, dyspnea on exertion or syncope Respiratory/Chest Respiratory/Chest: Denies cough, shortness of breath at rest or shortness of breath with exertion Gastrointestinal Gastrointestinal: Denies constipation, diarrhea, nausea or vomiting Genitourinary Genitourinary: Denies dysuria Neurologic Neurologic: Denies focal weakness, numbness or tremor(s) Psychiatric Psychiatric: Denies anxiety or depression Vital Signs Vital Signs Vital Signs: 01/04/24 10:06 01/04/24 10:06 01/04/24 10:12 Temperature 98.2 F 98.2 F Temperature Source Oral Oral Pulse Rate 74 Respiratory Rate 18 Respiratory Pattern Normal Blood Pressure 92/56 L Blood Pressure Mean 68 Pulse Ox 96 Oxygen Delivery Method Room Air Oxygen Flow Rate (L/min) 01/04/24 11:31 01/04/24 11:47 01/04/24 11:55 Temperature 98.0 F 98.2 F Temperature Source Oral Pulse Rate 74 91 Respiratory Rate 18 18 Respiratory Pattern Blood Pressure 110/71 121/77 H 111/64 Blood Pressure Mean 84 91 79 Pulse Ox 96 98 Oxygen Delivery Method Room Air Oxygen Flow Rate (L/min) 01/04/24 12:35 01/04/24 12:46 01/04/24 14:00 Temperature Temperature Source Pulse Rate 80 Respiratory Rate 16 Respiratory Pattern Blood Pressure 113/67 129/62 H 133/92 H Blood Pressure Mean 82 84 105 Pulse Ox 94 Oxygen Delivery Method Nasal Cannula Oxygen Flow Rate (L/min) 2 Weight Weight: 253 lb 8.505 oz Body Mass Index (BMI) 37.4 Physical Exam Narrative General: Alert, Oriented x3, Cooperative, No apparent distress HEENT: Atraumatic, PERRLA, EOMI, Normocephalic Oral: Moist Mucosa Neck: Supple, No JVD Lungs: Diminished, Normal air movement, No rhonchi, No wheeze, No rales Cardiovascular: Regular rate, Regular Rhythm, Normal S1, Normal S2, No murmurs Abdomen: Soft, Non Tender, Non-Distended, No Hepato-splenomegaly Extremities: Edema, Capillary Refill Less than 3 Seconds Skin: No rashes, No breakdown Musculoskeletal: No Tenderness to Palpation of Joints or Extremities Neurological: No focal neurological deficits, Motor Exam 5/5 strength throughout, Sensory exam intact to light touch and pain Psych/Mental Status: Normal Affect, Appropriate Results Lab / Micro Data 01/04/24 10:20 01/04/24 10:20 Labs: Laboratory Results - last 24 hr 01/04/24 10:20: WBC 16.9 H, RBC 4.62, Hgb 13.6, Hct 41.0, MCV 88.7, MCH 29.4, MCHC 33.2, RDW Std Deviation 42.7, RDW Coeff of Lorri 13.2, Plt Count 179, MPV 10.9, Immature Gran % (Auto) 0.600, Neut % (Auto) 83.4 H, Lymph % (Auto) 5.5 L, [place] % (Auto) 10.0, Eos % (Auto) 0.1, Baso % (Auto) 0.4, Absolute Neuts (auto) 14.1 H, Absolute Lymphs (auto) 0.93, Nucleated RBC % 0, Diff Path Review August, PT 15.5 H, INR 1.2, APTT 38.6 H, Sodium 134 L, Potassium 3.6, Chloride 98, Carbon Dioxide 26.0, Anion Gap 10, BUN 24 H, Creatinine 1.85 H, Estim Creat Clear Calc 48.46, Est GFR (MDRD) Af Amer 47 L, Est GFR (MDRD) Non-Af 39 L, BUN/Creatinine Ratio 13.0, Glucose 134 H, Calcium 9.4, Total Bilirubin 1.00, Direct Bilirubin 0.40 H, AST 17, ALT 23, Alkaline Phosphatase 75, Troponin I High Sens 8, Total Protein 7.1, Albumin 3.0 L, Globulin 4.1, Lipase 11 L 01/04/24 10:22: Lactic Acid 2.2 H* 01/04/24 11:41: Urine Color Yellow, Urine Clarity Sl. Cloudy, Urine pH 5.0, Ur Specific [place] 1.020, Urine Protein 30 H, Urine Glucose (UA) Normal, Urine Ketones Negative, Urine Occult Blood 10 H, Urine Nitrite Negative, Urine Bilirubin Negative, Urine Urobilinogen 1 H, Ur Leukocyte Esterase 500 H, Urine RBC 0-5 SEEN, Urine WBC 10-25 SEEN, Ur Squamous Epith Cells 0 SEEN, Urine Bacteria 3+, Urine Mucus 0 SEEN Imaging Radiology Impression Chest X-Ray 01/04/24 10:30 IMPRESSION: No radiographic evidence of acute cardiopulmonary disease. Electronically Signed: Jasvir Magana MD at 11:05 EDT , Assessment & Plan Assessment/Plan (1) Acute UTI: PLAN: Plan 1. Weakness and debility secondary to UTI without sepsis/LESIA ? Urine cultures pending ? UA is convincing for UTI with leukocyte esterase 500 and 3+ urinary bacteria though nitrites are negative ? Continue with Rocephin ? PT/OT ?He did spike a temp after admission and his heart rate climbed slightly, he was given a liter bolus in the ER and will place him on very slow IV fluids here secondary to his CHF ? Given his LESIA we will decrease his baclofen and his gabapentin by half, his baseline creatinine is around 1 based on his lab work from 2019 and on admission he is 1.85 today. ? That she does have an overactive bladder however given his UTI we will discontinue his oxybutynin during his hospitalization 2. Essential HTN/HLD/CAD status post CABG/CHF unknown type ? We do not have an echo in our system and he is not sure if he has a reduced ejection fraction or diastolic dysfunction ? Will hold his blood pressure medications today given the need for fluids in the ER due to hypotension ? Continue with his aspirin and Lipitor ? Will hold his Lasix and lisinopril given his LESIA 3. Spastic paraplegia ? He takes baclofen and gabapentin for this, given his slight LESIA will decrease dosage by half DVT: Heparin 75 minutes was spent on direct patient care, including documentation as well as chart review and collaboration with colleagues Charges/Coding Visit Charges Inpatient E&M: 72781 Init Hosp L3
[2024-01-04 17:08] LABS: Lactic Acid 3.6 mmol/L (0.4-1.9)
[2024-01-04] MEDS: Acetaminophen 650 MG Suppository RC (17:43)
[2024-01-04] MEDS: Gabapentin 100 MG Capsule 200 MG PO (21:27)
[2024-01-04] MEDS: Heparin Injection (Vial) 5,000 UNIT/ML VIAL 5000 UNIT SC (21:27)
[2024-01-04] MEDS: Baclofen 10 MG Tablet 20 MG PO (21:27)
[2024-01-04] MEDS: 0.9% Normal Saline (1000mL) 1,000 ML 60 ML IV (21:27)
[2024-01-04] MEDS: 0.9% Saline Lock 10 ML Syringe IV (22:50)
[2024-01-04] MEDS: Ondansetron 4 MG/2 ML Vial IV (22:50)
[2024-01-05] VITALS (7 sets, daily range): BP systolic 96–134; BP diastolic 57–78; PULSE 88–106; RESP 16–18; TEMP 37.1–37.7; O2SAT 92–96
[2024-01-05] MEDS: Heparin Injection (Vial) 5,000 UNIT/ML VIAL 5000 UNIT SC ×3 (05:40→21:37)
[2024-01-05 07:03] LABS: Absolute Neutrophil Count 14.6 X10^3/uL (2.0-7.7); Basophil# 0.04 X10^3/uL; Basophil% 0.2 % (0-1); Eosinophil# 0.02 X10^3/uL; Eosinophils% 0.1 % (0-5); Hematocrit 35.8 % (40-54); Hemoglobin 11.9 g/dL (13.0-16.5); Lymphocyte % 5.6 % (19-41); Mean Corp Hgb Conc 33.2 g/dL (32-36); Mean Corpuscular Hgb 29.8 pg (27.0-32.0); Mean Corpuscular Volume 89.5 fL (80-94); Mean Platelet Vol. 10.5 fl (6.2-12.0); Monocyte# 1.86 X10^3/uL; Monocyte% 10.5 % (0-10); NRBC Flagged by Analyzer 0 % (0-5); Neutrophil % 82.3 % (47-70); POSITIVE DIFFERENTIAL YES; Platelet Count 138 K/mm3 (150-450); RBC Distribution Width CV 13.2 % (11.6-14.6); RBC Distribution Width SD 43.8 fl (35.1-43.9); White Blood Count 17.8 K/mm3 (4.4-11.0)
[2024-01-05 07:08] LABS: Differential Indicated SCAN CRITERIA MET
[2024-01-05 07:30] LABS: Anion Gap 7 (5-15); BUN 30 mg/dL (7-18); BUN/Creat Ratio 20.8 RATIO (10-20); Calcium,Total 8.7 mg/dL (8.5-10.1); Chloride 104 mmol/L (98-107); Creatinine, Serum 1.44 mg/dL (0.70-1.30); EST Glomerular Filtration Rate 52 mL/min (>60); Est Glom Filt Rate - Afr Amer 63 mL/min (>60); Estimated Creatinine Clearance 61.18 ml/min; Glucose 105 mg/dL (74-106); Potassium 4.1 mmol/L (3.5-5.1); Sodium Level 137 mmol/L (136-145)
[2024-01-05] MEDS: Ondansetron 4 MG/2 ML Vial IV (08:00)
--- NOTE | 2024-01-05 08:06 | PCM.PN.HOSP ---
Reason for Visit Reason for Visit: Diagnoses Urinary tract infection, site not specified (01/04/24) Subjective Subjective Patient feeling a little bit better today but still overall not very good, did not eat very well this morning, had some nausea but this was held by antiemetics. Having pain in his leg which is chronic and controlled with 400 gabapentin 3 times daily, this was decreased due to his kidney function however patient having increased pain and requesting to go back to home dose Objective Data Objective Data Vital Signs: Vital Signs Temp Pulse Resp BP Pulse Ox O2 Del Method O2 Flow Rate 98.9 F 88 16 99/57 L 96 Nasal Cannula 2 01/05/24 05:42 01/05/24 05:42 01/05/24 05:42 01/05/24 05:42 01/05/24 05:42 01/05/24 05:42 01/05/24 05:42 Oxygen Flow Rate (L/min) 2 Oxygen Delivery Method Nasal Cannula Weight: 111.175 kg Body Mass Index (BMI) 36.1 Intake & Output: Intake and Output for Last 24 Hours 01/03/24 01/04/24 01/05/24 23:59 23:59 23:59 Intake Total 1350 / 1350 120 / 120 Output Total 250 / 250 Balance 1350 / 1250 -130 / -130 Lab / Micro Data 01/05/24 06:54 01/05/24 06:54 Labs: Laboratory Results - last 24 hr 01/04/24 10:20: WBC 16.9 H, RBC 4.62, Hgb 13.6, Hct 41.0, MCV 88.7, MCH 29.4, MCHC 33.2, RDW Std Deviation 42.7, RDW Coeff of Lorri 13.2, Plt Count 179, MPV 10.9, Immature Gran % (Auto) 0.600, Neut % (Auto) 83.4 H, Lymph % (Auto) 5.5 L, [place] % (Auto) 10.0, Eos % (Auto) 0.1, Baso % (Auto) 0.4, Absolute Neuts (auto) 14.1 H, Absolute Lymphs (auto) 0.93, Nucleated RBC % 0, Diff Path Review August, PT 15.5 H, INR 1.2, APTT 38.6 H, Sodium 134 L, Potassium 3.6, Chloride 98, Carbon Dioxide 26.0, Anion Gap 10, BUN 24 H, Creatinine 1.85 H, Estim Creat Clear Calc 48.46, Est GFR (MDRD) Af Amer 47 L, Est GFR (MDRD) Non-Af 39 L, BUN/Creatinine Ratio 13.0, Glucose 134 H, Calcium 9.4, Total Bilirubin 1.00, Direct Bilirubin 0.40 H, AST 17, ALT 23, Alkaline Phosphatase 75, Troponin I High Sens 8, Total Protein 7.1, Albumin 3.0 L, Globulin 4.1, Lipase 11 L 01/04/24 10:22: Lactic Acid 2.2 H* 01/04/24 11:41: Urine Color Yellow, Urine Clarity Sl. Cloudy, Urine pH 5.0, Ur Specific [place] 1.020, Urine Protein 30 H, Urine Glucose (UA) Normal, Urine Ketones Negative, Urine Occult Blood 10 H, Urine Nitrite Negative, Urine Bilirubin Negative, Urine Urobilinogen 1 H, Ur Leukocyte Esterase 500 H, Urine RBC 0-5 SEEN, Urine WBC 10-25 SEEN, Ur Squamous Epith Cells 0 SEEN, Urine Bacteria 3+, Urine Mucus 0 SEEN 01/04/24 16:28: Lactic Acid 3.6 H* 01/05/24 06:54: WBC 17.8 H, RBC 4.00 L, Hgb 11.9 L, Hct 35.8 L, MCV 89.5, MCH 29.8, MCHC 33.2, RDW Std Deviation 43.8, RDW Coeff of Lorri 13.2, Plt Count 138 L, MPV 10.5, Immature Gran % (Auto) 1.300 H, Neut % (Auto) 82.3 H, Lymph % (Auto) 5.6 L, [place] % (Auto) 10.5 H, Eos % (Auto) 0.1, Baso % (Auto) 0.2, Absolute Neuts (auto) 14.6 H, Absolute Lymphs (auto) 1.00, Nucleated RBC % 0, Differential Comment COMMENT, Diff Path Review August, Sodium 137, Potassium 4.1, Chloride 104, Carbon Dioxide 26.0, Anion Gap 7, BUN 30 H, Creatinine 1.44 H, Estim Creat Clear Calc 61.18, Est GFR (MDRD) Af Amer 63, Est GFR (MDRD) Non-Af 52 L, BUN/Creatinine Ratio 20.8 H, Glucose 105, Calcium 8.7 Micro: Microbiology 01/04/24 11:41 Urine Catheter - Catheter Urine Culture - Preliminary GNR Poss Pseudomonas sp Radiography Diagnostic Testing: Radiology Impression Chest X-Ray 01/04/24 10:30 IMPRESSION: No radiographic evidence of acute cardiopulmonary disease. Electronically Signed: Jasvir Magana MD at 11:05 EDT , Physical Exam Narrative General: Alert, oriented, no apparent distress HEENT: Atraumatic, normocephalic Eyes: Anicteric, normal conjunctiva, extraocular movements grossly intact Neck: Supple Respiratory: Clear to auscultation bilaterally, normal respiratory effort Cardiovascular: Regular rate GI: Soft, nontender, nondistended Extremities: No edema, thickening of toenails Musculoskeletal: Baseline deficits noted Neuro: Baseline deficits noted Skin: No rashes appreciated Psych: Cooperative Assessment & Plan Assessment/Plan (1) Acute UTI: PLAN: Plan # Acute UTI?gram-negative cesar possible Pseudomonas -Patient here with weakness and foul-smelling urine -Found to have white count of 16 and UA consistent with UTI as well as a temperature of 103, suspected LESIA with creatinine of 1.85, lactic acid that trended up to 3.6 and blood pressure that down trended to 91/54 from 135/71 with low-grade tachycardia -Patient given IV fluids, cultures obtained, started on Rocephin -This a.m. urine culture growing possible Pseudomonas, white blood cell count up trended and blood pressures remain soft -Antibiotics changed to Zosyn while pending cultures and sensitivities -Repeating lactic -Continue fluids although doing so cautiously as patient reportedly has a history of heart failure but he is unsure what kind he do not have this on file # Suspected LESIA -Patient with creatinine of 1.85, only value prior to current illness in our system was a creatinine of 1 in 2019 -Suspect this is LESIA and not baseline however given patient is already improving to 1.4 for, continue to trend, avoid nephrotoxic agents -Hold lisinopril -Continue treating underlying etiology and gentle hydration while monitoring volume status # Generalized weakness -Suspect secondary to #1 -Treat underlying illness -PT/OT # History of coronary artery disease status post CABG/?hx CHF unclear subtype -Continue aspirin and statin -Holding beta-lisa due to hypotension -Holding Lasix as patient requiring IV fluids -Will monitor daily weights and I's and O's given patient receiving IV fluids and Lasix being held with reported history of chronic heart failure #Hypertension -Holding home antihypertensives due to #1 with low blood pressure #ALBERTO -Continue home NIPPV if applicable # Hereditary spastic paraplegia -Continue baclofen, Neurontin, and supportive care, will reincrease Neurontin given improvement in kidney function and worsened pain with decreased home dose -If BP worsens or does not improve may need to consider holding baclofen and Neurontin but would not do so unless absolutely necessary given his history of spastic paraplegia #DVT ppx: Heparin subcu Gali Guajardo MD Time spent in the patient's overall evaluation,decision-making process, review of diagnostic data, adjustment of management, discussion with other providers, nursing nursing and ancillary staff involved in patient's care documentation, 38 minutes Charges/Coding Visit Charges Inpatient E&M: 11156 Subs Hosp L2
[2024-01-05] MEDS: Piperacil/Tazobactam 4.5 GM in 0.9% Normal Saline (100mL MB+) 100 ML IV (08:57)
[2024-01-05 08:58] LABS: Lactic Acid 0.9 mmol/L (0.4-1.9)
[2024-01-05] MEDS: oxyCODONE 5 MG Tablet PO ×2 (09:03→15:05)
[2024-01-05] MEDS: Aspirin E.C. 81 MG Tablet PO (09:03)
[2024-01-05] MEDS: Gabapentin 100 MG Capsule 200 MG PO (09:07)
[2024-01-05] MEDS: Baclofen 10 MG Tablet 30 MG PO (09:13)
[2024-01-05 11:35] LABS: Pathologist Review Reviewed
[2024-01-05] MEDS: Gabapentin 400 MG Capsule PO ×2 (14:51→21:37)
[2024-01-05] MEDS: Baclofen 10 MG Tablet 20 MG PO ×2 (14:51→19:41)
--- NOTE | 2024-01-05 14:55 | CASEMGMT ---
DONIS PEARCE Face to Face with patient for initial transition planning/care coordination assessment. DONIS PEARCE introduced self and role at [facility]. Patient lying in bed, alert and oriented. Patient willing to participate in assessment and is able to answer all questions appropriately. Care providers, pharmacy, and demographics verified. Strata: 2 PCP: [facility] Specialists: Zan, Cardio-vascular surgeon; Nimisha, neurologist [facility] Preferred Pharmacy: [facility] Insurance: [employer] Prescription Benefit: yes Living Will/HPOA: yes daughter Georgina Oshea LNOK: daughter, significant other Living Arrangements: Patient lives with significant other in a mobile home with ramp to enter the home. Patient was independent at home. Transportation: self, significant other DME/HHC: Patient has raised toilet, walker, cpap, and power wheelchair at home. No previous HHC. Patient has been to [facility] in the past. Patient wishes to [facility]. DONIS PEARCE provided SNF list to patient and [facility] is not in-network with insurance but will double check. DONIS PEARCE asked patient to review list and provide additional preferences. Patient states he has no further needs or concerns at this time. DONIS PEARCE updated SW regarding request for [facility] or other SNF. CM to follow for discharge planning needs that may arise. Disposition Plan: SNF pending acceptance and precert Alesha CARDOZA, RN, CM
--- NOTE | 2024-01-05 14:55 | CASEMGMT ---
Discharge Planning A list of?SNF providers including quality and resource use data and consistent with the patient's preferred geographic region, medical needs, and insurance network was created in [employer] Guide.? This list was provided to the RN RAMSES. Priyanka Merrill, Discharge Planning Asst.
[2024-01-05] MEDS: Piperacil/Tazobactam 3.375 GM in 0.9% Normal Saline (50mL MB+) 50 ML IV ×2 (14:58→21:37)
[2024-01-05] MEDS: 0.9% Normal Saline (1000mL) 1,000 ML 60 ML IV (14:58)
[2024-01-05] MEDS: Atorvastatin Calcium 40 MG Tablet PO (21:37)
[2024-01-06] MEDS: Ondansetron 4 MG/2 ML Vial IV (00:10)
[2024-01-06] MEDS: proMETHazine 25 MG/ML Syringe IM (01:40)
[2024-01-06 02:56] VITALS: BP 132/75; PULSE 98; RESP 18; TEMP 36.8; O2SAT 95
[2024-01-06 03:49] VITALS: BMI 36.0
[2024-01-06] MEDS: Scopolamine 1mg/72hr Patch 1 PATCH TD (04:51)
[2024-01-06] MEDS: Pantoprazole Sodium 40 MG in 0.9% Normal Saline (100mL MB+) 100 ML 330 MG IV ×2 (06:08→20:35)
[2024-01-06] MEDS: Gabapentin 400 MG Capsule PO ×3 (06:13→20:35)
[2024-01-06] MEDS: Baclofen 10 MG Tablet 30 MG PO (06:13)
[2024-01-06] MEDS: Heparin Injection (Vial) 5,000 UNIT/ML VIAL 5000 UNIT SC ×3 (06:14→20:36)
[2024-01-06] MEDS: Piperacil/Tazobactam 3.375 GM in 0.9% Normal Saline (50mL MB+) 50 ML IV (06:35)
[2024-01-06 06:56] LABS: Absolute Neutrophil Count 11.1 X10^3/uL (2.0-7.7); Basophil# 0.04 X10^3/uL; Basophil% 0.3 % (0-1); Eosinophil# 0.01 X10^3/uL; Eosinophils% 0.1 % (0-5); Hematocrit 37.1 % (40-54); Hemoglobin 12.4 g/dL (13.0-16.5); Mean Corp Hgb Conc 33.4 g/dL (32-36); Mean Corpuscular Hgb 29.5 pg (27.0-32.0); Mean Corpuscular Volume 88.1 fL (80-94); Mean Platelet Vol. 10.8 fl (6.2-12.0); Monocyte# 1.93 X10^3/uL; Monocyte% 13.9 % (0-10); NRBC Flagged by Analyzer 0 % (0-5); Neutrophil # 11.05 X10^3/uL (2.7-7.7); Neutrophil % 79.7 % (47-70); POSITIVE DIFFERENTIAL YES; Platelet Count 177 K/mm3 (150-450); RBC Distribution Width CV 13.2 % (11.6-14.6); RBC Distribution Width SD 43.1 fl (35.1-43.9); Red Blood Count 4.21 M/mm3 (4.6-6.2); White Blood Count 13.9 K/mm3 (4.4-11.0)
[2024-01-06 07:26] LABS: Differential Indicated SCAN CRITERIA MET
[2024-01-06 07:28] VITALS: BP 120/82; PULSE 99; RESP 16; TEMP 37.2; O2SAT 92
[2024-01-06] MEDS: Aspirin E.C. 81 MG Tablet PO (07:30)
[2024-01-06 08:10] LABS: Anion Gap 6 (5-15); BUN 23 mg/dL (7-18); BUN/Creat Ratio 25.9 RATIO (10-20); Calcium,Total 8.8 mg/dL (8.5-10.1); Chloride 104 mmol/L (98-107); Creatinine, Serum 0.89 mg/dL (0.70-1.30); EST Glomerular Filtration Rate 91 mL/min (>60); Est Glom Filt Rate - Afr Amer 110 mL/min (>60); Estimated Creatinine Clearance 98.72 ml/min; Glucose 142 mg/dL (74-106); Potassium 4.1 mmol/L (3.5-5.1); Sodium Level 136 mmol/L (136-145)
[2024-01-06 09:09] LABS: Differential Comment SCANNED
--- NOTE | 2024-01-06 10:13 | RAD_ITS ---
INDICATION: WORSENING N/V EXAMINATION/TECHNIQUE: X-RAY - XR Abdomen 1 View COMPARISON: No relevant prior comparison study available FINDINGS: BOWEL GAS PATTERN: Nonspecific gaseous small bowel loops and colon. Moderately distended stomach. FREE AIR: Not assessed on a single supine view. ORGANOMEGALY: Not seen. CALCIFICATIONS: No abnormal calcifications observed. LOWER CHEST: Not included on this exam. BONES AND SOFT TISSUES: No acute pathology. RAD/Abdomen Single View (Portable) IMPRESSION: Nonspecific gas pattern. Electronically Signed: Jasvir Magana MD at 13:05 EDT ,
[2024-01-06 10:25] LABS: Pathologist Review Reviewed
--- NOTE | 2024-01-06 12:41 | CASEMGMT ---
SW met with patient. Introduced self and role at [facility]. Patient was interested in [facility] at discharge, but they no longer contract with patient's insurance. SW explained this to patient. SW asked patient if he and his significant other had a chance to pick some facilities on the list. Patient said they have not. Patient will pass along the message to his significant other and they will review the list. Tonie MONTOYA
--- NOTE | 2024-01-06 13:16 | PCM.PN.HOSP ---
Reason for Visit Reason for Visit: Diagnoses Urinary tract infection, site not specified (01/04/24) Subjective Subjective Patient was having some nausea overnight and continues to have poor p.o. intake, no overt abdominal pain, only other complaint is just some general malaise and poor appetite/p.o. intake Objective Data Objective Data Vital Signs: Vital Signs Temp Pulse Resp BP Pulse Ox O2 Del Method O2 Flow Rate 99.0 F 99 16 120/82 H 92 Room Air 2 01/06/24 07:28 01/06/24 07:28 01/06/24 07:28 01/06/24 07:28 01/06/24 07:28 01/06/24 08:18 01/05/24 05:42 Oxygen Flow Rate (L/min) 2 Oxygen Delivery Method Room Air Weight: 110.6 kg Body Mass Index (BMI) 36.0 Intake & Output: Intake and Output for Last 24 Hours 01/04/24 01/05/24 01/06/24 23:59 23:59 23:59 Intake Total 1350 / 1350 1790 / 1790 760 / 760 Output Total 2100 / 2100 1100 / 1100 Balance 1350 / 1250 -310 / -310 -340 / -340 Lab / Micro Data 01/06/24 06:40 01/06/24 06:40 Labs: Laboratory Results - last 24 hr 01/05/24 06:54: Diff Path Review Reviewed 01/06/24 06:40: WBC 13.9 H, RBC 4.21 L, Hgb 12.4 L, Hct 37.1 L, MCV 88.1, MCH 29.5, MCHC 33.4, RDW Std Deviation 43.1, RDW Coeff of Lorri 13.2, Plt Count 177, MPV 10.8, Immature Gran % (Auto) 1.000 H, Neut % (Auto) 79.7 H, Lymph % (Auto) 5.0 L, [place] % (Auto) 13.9 H, Eos % (Auto) 0.1, Baso % (Auto) 0.3, Absolute Neuts (auto) 11.1 H, Absolute Lymphs (auto) 0.70 L, Nucleated RBC % 0, Differential Comment SCANNED, Diff Path Review August, Sodium 136, Potassium 4.1, Chloride 104, Carbon Dioxide 26.0, Anion Gap 6, BUN 23 H, Creatinine 0.89, Estim Creat Clear Calc 98.72, Est GFR (MDRD) Af Amer 110, Est GFR (MDRD) Non-Af 91, BUN/Creatinine Ratio 25.9 H, Glucose 142 H, Calcium 8.8 Micro: Microbiology 01/04/24 11:41 Urine Catheter - Catheter Urine Culture - Final ESBL Escherichia coli 01/06/24 04:45 Vomitus Gastric Occult Blood - Final Radiography Diagnostic Testing: Radiology Impression KUB X-Ray 01/06/24 10:13 IMPRESSION: Nonspecific gas pattern. Electronically Signed: Jasvir Magana MD at 13:05 EDT , Physical Exam Narrative General: Alert, oriented, no apparent distress HEENT: Atraumatic, normocephalic Eyes: Anicteric, normal conjunctiva, extraocular movements grossly intact Neck: Supple Respiratory: Clear to auscultation bilaterally, normal respiratory effort Cardiovascular: Regular rate GI: nontender, positive bowel sounds, no rebound, guarding, rigidity, slightly distended but still overall soft Extremities: No edema, thickening of toenails Musculoskeletal: Baseline deficits noted Neuro: Baseline deficits noted Skin: No rashes appreciated Psych: Cooperative Assessment & Plan Assessment/Plan (1) Acute UTI: PLAN: Plan # Acute UTI?ESBL E. coli -Patient here with weakness and foul-smelling urine -Found to have white count of 16 and UA consistent with UTI as well as a temperature of 103, suspected LESIA with creatinine of 1.85, lactic acid that trended up to 3.6 and blood pressure that down trended to 91/54 from 135/71 with low-grade tachycardia -Patient given IV fluids, cultures obtained, started on Rocephin -This a.m. urine culture growing possible Pseudomonas, white blood cell count up trended and blood pressures remain soft -Antibiotics changed to Zosyn while pending cultures and sensitivities -Repeating lactic -Continue fluids although doing so cautiously as patient reportedly has a history of heart failure but he is unsure what kind he do not have this on file -01/05: Patient started on Zosyn yesterday, growing ESBL E. coli, overall improvement in white blood cell count and vital signs, given ESBL ID consulted #LESIA -Patient with creatinine of 1.85, only value prior to current illness in our system was a creatinine of 1 in 2019 -Suspect this is LESIA and not baseline however given patient is already improving to 1.4 for, continue to trend, avoid nephrotoxic agents -Hold lisinopril -Continue treating underlying etiology and gentle hydration while monitoring volume status -01/05: Creatinine improved to 0.89 today with IV fluids with BUN down to 23. Will hold IV fluids given patient usually takes Lasix daily and appears to be volume repleted but will hold off on resuming the Lasix at this time especially given patient's poor p.o. intake. Continue to monitor daily weights and I's and O's # Worsening nausea -Patient with intermittent nausea and vomiting, seems to do better throughout the day and worse at night -Overnight gastric occult obtained which was positive, unclear significance the patient was started on IV PPI -Patient continues to have nausea and scopolamine patch ordered with Zofran as needed and Phenergan as a backup as needed -Given the above GI consulted -Patient admitted 01/03 and does not seem to have had a bowel movement, KUB with nonspecific pattern, abdomen benign and do not feel abdominal CT warranted acutely. Query if it is due to poor p.o. intake as well as patient receiving oxycodone due to his chronic pain complaints, will schedule MiraLAX and liberalize diet -Will also perform postvoid bladder scan to ensure patient not retaining urine # Poor p.o. intake -Patient has not been eating well since admission, likely in part due to underlying infection however patient is improving unclear why patient continues to have poor appetite -Could be due to constipation and/or nausea -Management as above -Will start mirtazapine nightly to help with appetite as well -Will also liberalize diet and add diet supplementation # Generalized weakness -Suspect secondary to #1 -Treat underlying illness -PT/OT -01/05: Patient working with PT OT, remains significantly weak even though infection improving and will ultimately need placement # History of coronary artery disease status post CABG/?hx CHF unclear subtype -Continue aspirin and statin -Holding beta-lisa due to hypotension -Holding Lasix as patient requiring IV fluids -Will monitor daily weights and I's and O's given patient receiving IV fluids and Lasix being held with reported history of chronic heart failure -01/05: Blood pressure improving within proven and underlying infection, Coreg added back, can continue to reintroduce medications as patient continues to improve. Will hold further IV fluids given creatinine improved the patient overall improved, may need to resume if patient has continued poor p.o. intake. Continue to monitor volume status with daily weights and I's and O's, holding furosemide as above # Overactive bladder -Resume home oxybutynin #Hypertension -Holding home antihypertensives due to #1 with low blood pressure -01/05: Improving with treatment of infection, adding Coreg back #ALBERTO -Continue home NIPPV if applicable -01/05: Had discussed CPAP with patient yesterday as he wears 1 at home and he was agreeable at the time however overnight he refused CPAP # Hereditary spastic paraplegia -Continue baclofen, Neurontin, and supportive care, will reincrease Neurontin given improvement in kidney function and worsened pain with decreased home dose -If BP worsens or does not improve may need to consider holding baclofen and Neurontin but would not do so unless absolutely necessary given his history of spastic paraplegia -01/05: Patient back on home doses of gabapentin and baclofen, overall pain significantly improved on home regimen #DVT ppx: Heparin subcu Gali Guajardo MD Charges/Coding Visit Charges Inpatient E&M: 97708 Subs Hosp L2
--- NOTE | 2024-01-06 13:51 | PCM.CONS.GEN ---
Assessment & Plan Assessment/Plan (1) Sepsis: (2) Infection due to ESBL-producing Escherichia coli: PLAN: Ucx with esbl ecoli. Labs, vitals, and symptoms improved. Will change zosyn to po cipro, plan on 7-10 days abx. Will follow, thank you HPI Consult Data Date of Consult: 01/06/24 HPI Narrative Reason for Consultation: sepsis HPI Narrative: ANT SHARP, is a 68 M with h/o paraplegia, CKD, presented 01/03 with one week of weakness, dysuria, not feeling well. Admitted on ceftriaxone, changed to zosyn. Feeling better today. Full ROS performed and neg except as noted above. [facility] Medical History GERD (gastroesophageal reflux disease) History of rectal cancer ALBERTO on CPAP HLD (hyperlipidemia) CAD (coronary artery disease) Non-smoker Hypertension Hereditary spastic paraplegia CHF (congestive heart failure) Home Medications ?Medication ?Instructions ?Recorded ?Last Taken ?Type aspirin 81 mg tablet,delayed 81 mg PO DAILY HEART HEALTH 11/08/18 01/04/24 History release atorvastatin 40 mg tablet 40 mg PO DAILY CHOLESTEROL 11/08/18 01/04/24 History baclofen 20 mg tablet 40 mg PO 1400 MUSCLE SPASMS 11/08/18 01/03/24 History baclofen 20 mg tablet 40 mg PO 2000 MUSCLE SPASMS 11/08/18 01/03/24 History baclofen 20 mg tablet 60 mg PO 0600 MUSCLE SPASMS 11/08/18 01/04/24 History oxybutynin chloride 5 mg tablet 5 mg PO TID OVERACTIVE BLADDER 11/08/18 01/04/24 History carvedilol 3.125 mg tablet 3.125 mg PO BID HEART 01/01/24 01/03/24 History carvedilol 6.25 mg tablet 6.25 mg PO BID HEART 01/01/24 01/03/24 History furosemide 40 mg tablet 40 mg PO DAILY EDEMA 01/01/24 01/03/24 History gabapentin 400 mg capsule 400 mg PO TID NEUROPATHY 01/01/24 01/04/24 History lisinopril 20 mg tablet 20 mg PO DAILY BLOOD PRESSURE 01/01/24 01/03/24 History fxoznzsu-dnf-nnusm acid 500 1 tab PO DAILY SUPPLEMENT 01/01/24 01/04/24 History mcg-lycopene 300 mcg-lutein 250 mcg tablet (A Thru Z Select) doxazosin 4 mg tablet 4 mg PO DAILY BLOOD PRESSURE 01/04/24 01/04/24 History Allergy/AdvReac Type Severity Reaction Status Date / Time No Known Allergies Allergy Verified 01/04/24 10:06 Family History Father Heart disease Hypertension Mother Osteoarthritis Surgical History History of ankle surgery History of tonsillectomy and adenoidectomy History of rectal surgery Hx of CABG H/O hand surgery Social History household members: significant other Smoking Status: Never smoker alcohol intake: current alcohol intake frequency: holidays/special occasions only substance use type: does not use Physical Exam Const alert, oriented x3 and no apparent distress General Appearance: cooperative HEENT normocephalic and head/scalp atraumatic Eyes PERRL and EOMs intact bilaterally Neck supple and No nodes Resp normal air movement and clear to auscultation bilaterally Cardio regular rate and regular rhythm GI soft to palpation, non-tender and non-distended Extremity General Extremity: Negative for edema Skin no rashes or lesions noted Neuro CN's II-XII intact bilaterally Lab / Micro Data Attestation: I reviewed the patient's lab results. 01/06/24 06:40 01/06/24 06:40 Labs: Laboratory Results - last 24 hr 01/05/24 06:54: Diff Path Review Reviewed 01/06/24 06:40: WBC 13.9 H, RBC 4.21 L, Hgb 12.4 L, Hct 37.1 L, MCV 88.1, MCH 29.5, MCHC 33.4, RDW Std Deviation 43.1, RDW Coeff of Lorri 13.2, Plt Count 177, MPV 10.8, Immature Gran % (Auto) 1.000 H, Neut % (Auto) 79.7 H, Lymph % (Auto) 5.0 L, [place] % (Auto) 13.9 H, Eos % (Auto) 0.1, Baso % (Auto) 0.3, Absolute Neuts (auto) 11.1 H, Absolute Lymphs (auto) 0.70 L, Nucleated RBC % 0, Differential Comment SCANNED, Diff Path Review August, Sodium 136, Potassium 4.1, Chloride 104, Carbon Dioxide 26.0, Anion Gap 6, BUN 23 H, Creatinine 0.89, Estim Creat Clear Calc 98.72, Est GFR (MDRD) Af Amer 110, Est GFR (MDRD) Non-Af 91, BUN/Creatinine Ratio 25.9 H, Glucose 142 H, Calcium 8.8 Micro: Microbiology 01/04/24 12:53 Blood Culture (Wb) - Anticubital Right Blood Culture - Preliminary No growth in 48 hours. 01/04/24 11:41 Urine Catheter - Catheter Urine Culture - Final ESBL Escherichia coli 01/06/24 04:45 Vomitus Gastric Occult Blood - Final Imaging Radiology Impression KUB X-Ray 01/06/24 10:13 IMPRESSION: Nonspecific gas pattern. Electronically Signed: Jasvir Magana MD at 13:05 EDT ,
[2024-01-06 14:51] VITALS: BP 136/79; PULSE 92; RESP 14; TEMP 37.4; O2SAT 93
[2024-01-06] MEDS: Oxybutynin 5 MG Tablet PO ×2 (14:53→20:37)
[2024-01-06] MEDS: Polyethylene Glycol 3350 17 GM PACKET PO (14:53)
[2024-01-06] MEDS: Baclofen 10 MG Tablet 20 MG PO ×2 (14:53→20:10)
[2024-01-06] MEDS: Ciprofloxacin 500 MG Tablet PO ×2 (14:53→20:36)
[2024-01-06 17:11] VITALS: BP 145/76; PULSE 90
[2024-01-06] MEDS: Carvedilol 3.125 MG TABLET PO (17:12)
[2024-01-06] MEDS: Carvedilol 6.25 MG Tablet PO (17:12)
--- NOTE | 2024-01-06 17:15 | CON.PCM.GI_ITS ---
HPI Consult Data Date of Consult: 01/06/24 HPI Narrative Reason for Consultation: Nausea vomiting HPI Narrative: ANT SHARP, is a 68 M who presented to hospital complaining of weakness. He is noticed a slow decline over the last week or so when he actually had a fall at home on Thursday denies any significant injuries, he was seen here and initially there is nothing found on workup that he was discharged home. He complains of continued weakness and foul-smelling urine. No fevers or chills that he has noticed. He does not feel like his legs are more swollen than they normally are, he does have a history of a CABG with heart failure though he is unsure what type it we do not have an echo on file. He was found to have a white count of 16,000 with a UA consistent with a UTI, he was given a liter fluid bolus for low blood pressures but now he is on the higher side with systolics of 151. He was diagnosed with urinary tract infection is currently being seen by infectious disease as he remains on antibiotics. I was asked to see him due to worsening nausea and vomiting over the last week and a half. He has not started any new medicines. He does take 81 mg aspirin a day. He does take baclofen because of back spasms on a daily basis. He also takes oxybutynin for bladder spasms. He does not take any other blood thinners or [id number] pain medicines. He ate a little bit last night but has not been able to eat anything all day today due to worsening nausea. [facility] Medical History GERD (gastroesophageal reflux disease) History of rectal cancer ALBERTO on CPAP HLD (hyperlipidemia) CAD (coronary artery disease) Non-smoker Hypertension Hereditary spastic paraplegia CHF (congestive heart failure) Home Medications ?Medication ?Instructions ?Recorded ?Last Taken ?Type aspirin 81 mg tablet,delayed 81 mg PO DAILY HEART HEALTH 11/08/18 01/04/24 History release atorvastatin 40 mg tablet 40 mg PO DAILY CHOLESTEROL 11/08/18 01/04/24 History baclofen 20 mg tablet 40 mg PO 1400 MUSCLE SPASMS 11/08/18 01/03/24 History baclofen 20 mg tablet 40 mg PO 2000 MUSCLE SPASMS 11/08/18 01/03/24 History baclofen 20 mg tablet 60 mg PO 0600 MUSCLE SPASMS 11/08/18 01/04/24 History oxybutynin chloride 5 mg tablet 5 mg PO TID OVERACTIVE BLADDER 11/08/18 01/04/24 History carvedilol 3.125 mg tablet 3.125 mg PO BID HEART 01/01/24 01/03/24 History carvedilol 6.25 mg tablet 6.25 mg PO BID HEART 01/01/24 01/03/24 History furosemide 40 mg tablet 40 mg PO DAILY EDEMA 01/01/24 01/03/24 History gabapentin 400 mg capsule 400 mg PO TID NEUROPATHY 01/01/24 01/04/24 History lisinopril 20 mg tablet 20 mg PO DAILY BLOOD PRESSURE 01/01/24 01/03/24 History odpznztz-kdx-actsq acid 500 1 tab PO DAILY SUPPLEMENT 01/01/24 01/04/24 History mcg-lycopene 300 mcg-lutein 250 mcg tablet (A Thru Z Select) doxazosin 4 mg tablet 4 mg PO DAILY BLOOD PRESSURE 01/04/24 01/04/24 History Allergy/AdvReac Type Severity Reaction Status Date / Time No Known Allergies Allergy Verified 01/04/24 10:06 Family History Father Heart disease Hypertension Mother Osteoarthritis Surgical History History of ankle surgery History of tonsillectomy and adenoidectomy History of rectal surgery Hx of CABG H/O hand surgery Social History household members: significant other Smoking Status: Never smoker alcohol intake: current alcohol intake frequency: holidays/special occasions only substance use type: does not use ROS Constitutional Constitutional: Reports weakness; Denies chills, fatigue, fever(s) or malaise Eyes Eyes: Denies blurry vision ENT HEENT: Denies headache(s) or nasal discharge Cardiovascular Cardiovascular: Reports edema; Denies chest pain, dyspnea on exertion or syncope Respiratory/Chest Respiratory/Chest: Denies cough, shortness of breath at rest or shortness of breath with exertion Gastrointestinal Gastrointestinal: Denies constipation, diarrhea, nausea or vomiting Genitourinary Genitourinary: Denies dysuria Neurologic Neurologic: Denies focal weakness, numbness or tremor(s) Psychiatric Psychiatric: Denies anxiety or depression Physical Exam Const alert, oriented x3 and no apparent distress General Appearance: cooperative HEENT normocephalic and head/scalp atraumatic Eyes PERRL and EOMs intact bilaterally Neck supple and No nodes Resp normal air movement and clear to auscultation bilaterally Cardio regular rate and regular rhythm GI soft to palpation, non-tender and non-distended Extremity General Extremity: Negative for edema Skin no rashes or lesions noted Neuro CN's II-XII intact bilaterally Lab / Micro Data 01/06/24 06:40 01/06/24 06:40 Labs: Laboratory Results - last 24 hr 01/05/24 06:54: Diff Path Review Reviewed 01/06/24 06:40: WBC 13.9 H, RBC 4.21 L, Hgb 12.4 L, Hct 37.1 L, MCV 88.1, MCH 29.5, MCHC 33.4, RDW Std Deviation 43.1, RDW Coeff of Lorri 13.2, Plt Count 177, MPV 10.8, Immature Gran % (Auto) 1.000 H, Neut % (Auto) 79.7 H, Lymph % (Auto) 5.0 L, [place] % (Auto) 13.9 H, Eos % (Auto) 0.1, Baso % (Auto) 0.3, Absolute Neuts (auto) 11.1 H, Absolute Lymphs (auto) 0.70 L, Nucleated RBC % 0, Differential Comment SCANNED, Diff Path Review May foll, Sodium 136, Potassium 4.1, Chloride 104, Carbon Dioxide 26.0, Anion Gap 6, BUN 23 H, Creatinine 0.89, Estim Creat Clear Calc 98.72, Est GFR (MDRD) Af Amer 110, Est GFR (MDRD) Non-Af 91, B UN/Creatinine Ratio 25.9 H, Glucose 142 H, Calcium 8.8 Micro: Microbiology 01/04/24 12:53 Blood Culture (Wb) - Anticubital Right Blood Culture - Preliminary No growth in 48 hours. 01/04/24 11:41 Urine Catheter - Catheter Urine Culture - Final ESBL Escherichia coli 01/06/24 04:45 Vomitus Gastric Occult Blood - Final Imaging Radiology Impression KUB X-Ray 01/06/24 10:13 IMPRESSION: Nonspecific gas pattern. Electronically Signed: Jasvir Magana MD at 13:05 EDT , Assessment & Plan Assessment/Plan (1) Acute UTI: PLAN: Plan 68-year-old gentleman with spastic paraplegia plegia presents with weakness and debility secondary to UTI also has nausea vomiting. Differential diagnosis does include infectious gastroparesis with concomitant underlying slow gastric emptying due to chronic baclofen usage and immobility. Also due to underlying gastroparesis he is at risk for peptic ulcer disease and gastric wall inflammation secondary to nonsteroidals including 81 mg of aspirin and H. pylori associated gastritis. Recommend upper endoscopy evaluate his upper GI tract. He was explained alternatives, risk, benefits including not withstanding bleeding, infection, sepsis, perforation, need for more charge and . He will have an ASA of 3. Charges/Coding Visit Charges Inpatient E&M: 36001 Init Hosp L3
[2024-01-06 20:23] VITALS: BP 109/68; PULSE 77; RESP 16; TEMP 37.5; O2SAT 95
[2024-01-06] MEDS: 0.9% Saline Lock 10 ML Syringe IV (20:29)
[2024-01-06] MEDS: Atorvastatin Calcium 40 MG Tablet PO (20:37)
[2024-01-06] MEDS: Mirtazapine 15 MG Tablet 7.5 MG PO (20:38)
[2024-01-07] VITALS (11 sets, daily range): BP systolic 93–137; BP diastolic 67–77; PULSE 65–77; RESP 14–18; TEMP 36.4–37.1; O2SAT 92–95; BMI 35.9; BMI 34.7
[2024-01-07 06:26] LABS: Absolute Lymphocyte Count 1.48 X10^3/uL (0.83-4.51); Basophil# 0.04 X10^3/uL; Basophil% 0.3 % (0-1); Eosinophil# 0.08 X10^3/uL; Eosinophils% 0.7 % (0-5); Hematocrit 35.7 % (40-54); Hemoglobin 11.6 g/dL (13.0-16.5); Lymphocyte # 1.48 X10^3/ul (0.83-4.51); Lymphocyte % 12.8 % (19-41); Mean Corp Hgb Conc 32.5 g/dL (32-36); Mean Corpuscular Hgb 29.3 pg (27.0-32.0); Mean Corpuscular Volume 90.2 fL (80-94); Mean Platelet Vol. 10.8 fl (6.2-12.0); Monocyte# 1.87 X10^3/uL; Monocyte% 16.1 % (0-10); NRBC Flagged by Analyzer 0 % (0-5); Neutrophil # 7.98 X10^3/uL (2.7-7.7); POSITIVE DIFFERENTIAL YES; Platelet Count 173 K/mm3 (150-450); RBC Distribution Width CV 13.4 % (11.6-14.6); RBC Distribution Width SD 44.5 fl (35.1-43.9); Red Blood Count 3.96 M/mm3 (4.6-6.2); White Blood Count 11.6 K/mm3 (4.4-11.0)
[2024-01-07 06:46] LABS: Differential Indicated SCAN CRITERIA MET
[2024-01-07 06:52] LABS: Anion Gap 6 (5-15); BUN 22 mg/dL (7-18); BUN/Creat Ratio 24.8 RATIO (10-20); Calcium,Total 8.5 mg/dL (8.5-10.1); Chloride 103 mmol/L (98-107); Creatinine, Serum 0.89 mg/dL (0.70-1.30); EST Glomerular Filtration Rate 91 mL/min (>60); Est Glom Filt Rate - Afr Amer 110 mL/min (>60); Estimated Creatinine Clearance 100.02 ml/min; Glucose 91 mg/dL (74-106); Sodium Level 135 mmol/L (136-145)
[2024-01-07 07:38] LABS: International Normalized Ratio 1.2; Prothrombin Time (Protime)PT. 15.1 SECONDS (11.7-14.9)
[2024-01-07 07:39] LABS: Partial Thromboplast Time 42.6 Seconds (24.1-36.2)
--- NOTE | 2024-01-07 09:24 | CASEMGMT ---
SW met with patient and his significant other. They had the list of senior care facilities out. They have not yet decided on a nursing facility. SW asked if they had any questions and they did not. They will continue to review the list. Tonie MONTOYA
--- NOTE | 2024-01-07 10:00 | PCM.PN.ID ---
Physical Exam Narrative Feeling better, no fever, no abd pain, no n/v/d. Const alert and no apparent distress General Appearance: cooperative Resp normal air movement and clear to auscultation bilaterally Cardio regular rate and regular rhythm GI soft to palpation, non-tender and non-distended Skin no rashes or lesions noted ID ID: Route of nutrition/ use of supplements: [] Nutritional Intake: [] IV Site: [] Feng Catheter: [] Assessment & Plan Assessment/Plan (1) Sepsis: (2) Infection due to ESBL-producing Escherichia coli: PLAN: Ucx with esbl ecoli. Labs, vitals, and symptoms improved. Cont po cipro, stop date 01/13/24. Will follow
--- NOTE | 2024-01-07 10:24 | NURSING ---
Pt to endo via tech
[2024-01-07] MEDS: Lactated Ringers 1,000 ML 15 ML IV (10:48)
--- NOTE | 2024-01-07 11:14 | PCM.PRE.AN2 ---
ASA Classification* ASA Classification ASA Classification: 3 Assessment & Plan Anesthesia* Anesthesia Assessment Anesthesia Assessment: Discussed sedation and/or anesthesia options, risks, benefits, and alternatives with patient/parents/legal guardian/POA. Questions invited. The patient/parents/legal guardian/POA seems to understand and agrees to proceed with anesthesia plan. Reviewed the physical assessment, medical history, allergy history and patient home medications list prior to surgery/procedure/anesthetic and documented any changes. Performed airway and anesthesia risk assessments. Anesthesia Type Anesthesia Type: MAC History Source History Obtained from:: Patient and Chart Anesthesia Focused Assessment* Temperature: 97.6 F Pulse Rate: 68 Blood Pressure: 126/73 Respiratory Rate: 16 Pulse Ox: 94 Oxygen Delivery Method: Room Air Airway Assessment Mouth opens: >3 cm Mallampati Score: III Teeth Condition: Full (Patient has full dentures upper and lower. They are currently out.) Focused Labs Anesthesia Preop lab: CBC WBC 11.6 K/mm3 (4.4-11.0) H 01/07/24 05:41 RBC 3.96 M/mm3 (4.6-6.2) L 01/07/24 05:41 Hgb 11.6 g/dL (13.0-16.5) L 01/07/24 05:41 Hct 35.7 % (40-54) L 01/07/24 05:41 Plt Count 173 K/mm3 (150-450) 01/07/24 05:41 CHEMISTRY Potassium 4.0 mmol/L (3.5-5.1) 01/07/24 05:41 Sodium 135 mmol/L (136-145) L 01/07/24 05:41 Magnesium 2.4 mg/dL (1.6-2.6) 01/01/24 02:40 BUN 22 mg/dL (7-18) H 01/07/24 05:41 Creatinine 0.89 mg/dL (0.70-1.30) 01/07/24 05:41 Glucose 91 mg/dL (74-106) 01/07/24 05:41 POC Glucose 147 mg/dL (74-106) H 01/01/24 02:51 TSH 0.847 uIU/mL (0.358-3.740) 01/01/24 02:40 COAG PT 15.1 SECONDS (11.7-14.9) H 01/07/24 05:41 Pre-Assessment Diagnosis/Proposed Procedure Planned Operative Procedure(s): EGD Anesthesia History Anesthesia History - commercial loan closer: Anesthesia History - commercial loan closer Hx Hospitalization No 11/08/18 08:29 Any Problems With Anesthesia No 01/07/24 06:11 Cholinesterase deficiency No 01/07/24 06:11 You/Your Family Experience No 01/07/24 06:11 fever (hyperthermia) with Relationship Recent Exposure to Contagious No 01/07/24 06:11 Disease Does patient have nerve No 01/07/24 06:11 stimulator Patient instructed to have No 01/07/24 06:11 device shut off --Does patient have Pacemaker or ICD? When Was Last Pacemaker Check QUESTION #4 FULL TEXT: You/Your Family Experience fever (hyperthermia) with Anesthesia Last Oral Intake Last Oral intake: Last Oral Intake NPO since 00:00 01/07/24 06:11 Meds taken in AM with sips of No 01/07/24 06:11 water? Meds patient instructed to take am of surgery PONV PONV - commercial loan closer: PONV - commercial loan closer Female HX of Motion Sickness HX of N/V After Surgery Non-Smoker Duration of Surgery greater than 60 minutes Number of Risk Factors PONV Score Height & Weight Height & Weight: Anesthesia: Height & Weight Height 5 ft 10 in 01/07/24 06:11 Weight: 110 kg 01/07/24 06:11 Body Mass Index (BMI) 34.7 01/07/24 06:11 Respiratory Assessment Respiratory Assessment - commercial loan closer: Respiratory Tract Infection Hx - commercial loan closer Hx Respiratory Tract Infection No 01/07/24 06:11 STOP Sleep Apnea STOP Sleep Apnea - commercial loan closer: STOP Sleep Apnea - commercial loan closer Hx Hypertension Yes: ON MED, CONTROLLED 01/05/24 15:07 Hx Sleep Apnea Yes 01/04/24 15:16 CPAP Yes 01/04/24 15:16 BIPAP No 01/04/24 15:16 Do you snore loudly (louder than talking or can be heard Do you often feel tired/ fatigued/ sleepy during daytime? Has anyone observed you stop breathing during sleep? STOP Results Positive 01/04/24 15:16 QUESTION #5 FULL TEXT : Do you snore loudly (louder than talking or can be heard through closed doors)? Tobacco Use History Tobacco Use History - commercial loan closer: Tobacco Use History - commercial loan closer Tobacco Use Smoking Status Never smoker 01/04/24 15:16 Hx Tobacco Use No 01/04/24 15:16 Years Smoking Packs Smoked per Day Smoking Cessation Date was within the last 15 years Hx Smoking Cessation Date Hx Smoking Cessation Counseling Hematologic Medial History Hematologic Hx - commercial loan closer: Hematologic Medical Hx - welfare specialist Hx of Blood Transfusion No 01/04/24 15:16 Hx of Transfusion in last 3 No 01/04/24 15:16 Months Date of Last Transfusion (if within last 3 months) Ever experience any problems No 01/04/24 15:16 with transfusion(s)? Specify any problems Hx of Preganancy in last 3 N/A 01/04/24 15:16 Months Nurse Filling Out Transfusion HSMUCKER 01/04/24 15:16 & Questions: Date: 01/04/24 01/04/24 15:16 Time: 15:18 01/04/24 15:16 Patient unable to answer at this time (ie. confused, unrespo /Reproduction History /Reproductive History - commercial loan closer: /Reproductive Hx- commercial loan closer Hx Now No 01/07/24 06:11 Gestational Age (in weeks): EDC: Hx Hx Para Hx Section SAB No 01/07/24 06:11 Active Medications Active Medications: Current Medications Generic Name Dose Route Start Last Admin Trade Name Freq PRN Reason Stop Dose Admin Acetaminophen 650 mg 01/04/24 16:43 01/04/24 17:43 Acetaminophen 650 Mg Suppository RC 650 mg Q6H PRN PRN Administration Pain 1-10 or Fever Al Hydrox/Mg Hydrox/Simethicone 15 ml 01/06/24 17:32 Mag /Aluminum/Simeth Wch Udc 30 Ml Oral.Susp PO Q6H PRN PRN INDIGESTION/HEART BURN Aspirin 81 mg 01/05/24 10:00 01/07/24 09:17 Aspirin E.C. 81 Mg Tablet PO Not Given DAILYCM MIKEY Atorvastatin Calcium 40 mg 01/05/24 22:00 01/06/24 20:37 Atorvastatin Calcium 40 Mg Tablet PO 40 mg QHS MIKEY Administration Baclofen 30 mg 01/05/24 06:00 01/07/24 06:15 Baclofen 10 Mg Tablet PO Not Given 0600 MIKEY Baclofen 20 mg 01/05/24 14:00 01/06/24 14:53 Baclofen 10 Mg Tablet PO 20 mg 1400 MIKEY Administration Baclofen 20 mg 01/04/24 20:00 01/06/24 20:10 Baclofen 10 Mg Tablet PO 20 mg 2000 MIKEY Administration Carvedilol 3.125 mg 01/06/24 17:00 01/06/24 17:12 Carvedilol 3.125 Mg Tablet PO 3.125 mg BIDCM MIKEY Administration Protocol Ciprofloxacin HCl 500 mg 01/06/24 13:55 01/06/24 20:36 Ciprofloxacin 500 Mg Tablet PO 500 mg BID MIKEY Administration Gabapentin 400 mg 01/05/24 14:00 01/07/24 06:15 Gabapentin 400 Mg Capsule PO Not Given TID MIKEY Heparin Sodium (Porcine) 5,000 unit 01/04/24 22:00 01/07/24 06:19 Heparin Injection (Vial) 5,000 Unit/Ml Vial SC Not Given Q8 MIKEY Sodium Chloride 250 mls @ 15 mls/hr 01/04/24 15:31 IV .[id number] PRN Additional IVPB Infusion Sodium Chloride 250 mls @ 15 mls/hr 01/04/24 15:31 IV .[id number] PRN Saline Flush Pantoprazole Sodium 40 mg/ 110 mls @ 330 mls/hr 01/06/24 06:00 01/06/24 20:55 Sodium Chloride IV Infused Q12 MIKEY Infusion Lactated Ringer's 1,000 mls @ 15 mls/hr 01/07/24 10:45 01/07/24 10:48 IV 15 mls/hr .Q48H MIKEY Administration Mirtazapine 7.5 mg 01/06/24 22:00 01/06/24 20:38 Mirtazapine 15 Mg Tablet PO 7.5 mg QHS MIKEY Administration Ondansetron HCl 4 mg 01/04/24 22:38 01/06/24 00:10 Ondansetron 4 Mg/2 Ml Vial IV 4 mg Q6H PRN PRN Administration NAUSEA/VOMITING Oxybutynin Chloride 5 mg 01/06/24 14:00 01/07/24 06:14 Oxybutynin 5 Mg Tablet PO Not Given TID MIKEY Oxycodone HCl 5 mg 01/04/24 19:20 01/05/24 15:05 Oxycodone 5 Mg Tablet PO 5 mg Q6H PRN PRN Administration Pain Score 4-10 Polyethylene Glycol 17 gm 01/06/24 13:30 01/07/24 09:17 Polyethylene Glycol 3350 17 Gm Packet PO Not Given BID MIKEY Promethazine HCl 25 mg 01/06/24 01:30 01/06/24 01:40 Promethazine 25 Mg/Ml Syringe IM 25 mg Q4H PRN PRN Administration NAUSEA/VOMITING Scopolamine HBr 1 patch 01/06/24 06:00 01/06/24 04:51 Scopolamine 1mg/72hr Patch TD 1 patch Q3D MIKEY Administration Sodium Chloride 10 - 40 ml 01/04/24 15:31 01/06/24 20:29 0.9% Saline Lock 10 Ml Syringe IV 10 ml UD PRN Administration SALINE FLUSH PFSH Medical History GERD (gastroesophageal reflux disease) History of rectal cancer ALBERTO on CPAP HLD (hyperlipidemia) CAD (coronary artery disease) Non-smoker Hypertension Hereditary spastic paraplegia CHF (congestive heart failure) Home Medications ?Medication ?Instructions ?Recorded ?Last Taken ?Type aspirin 81 mg tablet,delayed 81 mg PO DAILY HEART HEALTH 11/08/18 01/04/24 History release atorvastatin 40 mg tablet 40 mg PO DAILY CHOLESTEROL 11/08/18 01/04/24 History baclofen 20 mg tablet 40 mg PO 1400 MUSCLE SPASMS 11/08/18 01/03/24 History baclofen 20 mg tablet 40 mg PO 2000 MUSCLE SPASMS 11/08/18 01/03/24 History baclofen 20 mg tablet 60 mg PO 0600 MUSCLE SPASMS 11/08/18 01/04/24 History oxybutynin chloride 5 mg tablet 5 mg PO TID OVERACTIVE BLADDER 11/08/18 01/04/24 History carvedilol 3.125 mg tablet 3.125 mg PO BID HEART 01/01/24 01/03/24 History carvedilol 6.25 mg tablet 6.25 mg PO BID HEART 01/01/24 01/03/24 History furosemide 40 mg tablet 40 mg PO DAILY EDEMA 01/01/24 01/03/24 History gabapentin 400 mg capsule 400 mg PO TID NEUROPATHY 01/01/24 01/04/24 History lisinopril 20 mg tablet 20 mg PO DAILY BLOOD PRESSURE 01/01/24 01/03/24 History ekytdnsu-khu-neeok acid 500 1 tab PO DAILY SUPPLEMENT 01/01/24 01/04/24 History mcg-lycopene 300 mcg-lutein 250 mcg tablet (A Thru Z Select) doxazosin 4 mg tablet 4 mg PO DAILY BLOOD PRESSURE 01/04/24 01/04/24 History Allergy/AdvReac Type Severity Reaction Status Date / Time No Known Allergies Allergy Verified 01/07/24 10:39 Family History Father Heart disease Hypertension Mother Osteoarthritis Surgical History History of ankle surgery History of tonsillectomy and adenoidectomy History of rectal surgery Hx of CABG H/O hand surgery Social History household members: significant other Smoking Status: Never smoker alcohol intake: current alcohol intake frequency: holidays/special occasions only substance use type: does not use Review of Systems (Anesthesia) ROS Narrative System reviewed and no additional complaints, except as documented.
--- NOTE | 2024-01-07 11:17 | PN.HOSP_ITS ---
Reason for Visit Reason for Visit: Diagnoses Sepsis, unspecified organism (01/04/24) Other bacterial infections of unspecified site (01/04/24) Urinary tract infection, site not specified (01/04/24) Extended spectrum beta lactamase (ESBL) resistance (01/04/24) Subjective Subjective Patient evaluated bedside, still having bowel nausea and poor p.o., awaiting endoscopy Objective Data Objective Data Vital Signs: Vital Signs Temp Pulse Resp BP Pulse Ox O2 Del Method O2 Flow Rate 97.6 F L 68 16 126/73 H 94 Room Air 2 01/07/24 08:56 01/07/24 08:56 01/07/24 08:56 01/07/24 08:56 01/07/24 08:56 01/07/24 08:56 01/05/24 05:42 Oxygen Flow Rate (L/min) 2 Oxygen Delivery Method Room Air Weight: 110 kg Body Mass Index (BMI) 34.7 Intake & Output: Intake and Output for Last 24 Hours 01/05/24 01/06/24 01/07/24 23:59 23:59 23:59 Intake Total 1790 / 1790 2100 / 2100 Output Total 2100 / 2100 1700 / 1700 Balance -310 / -310 400 / 400 Lab / Micro Data 01/07/24 05:41 01/07/24 05:41 Labs: Laboratory Results - last 24 hr 01/07/24 05:41: WBC 11.6 H, RBC 3.96 L, Hgb 11.6 L, Hct 35.7 L, MCV 90.2, MCH 29.3, MCHC 32.5, RDW Std Deviation 44.5 H, RDW Coeff of Lorri 13.4, Plt Count 173, MPV 10.8, Immature Gran % (Auto) 1.100 H, Neut % (Auto) 69.0, Lymph % (Auto) 12.8 L, [place] % (Auto) 16.1 H, Eos % (Auto) 0.7, Baso % (Auto) 0.3, Absolute Neuts (auto) 8.0 H, Absolute Lymphs (auto) 1.48, Nucleated RBC % 0, Differential Comment COMMENT, Diff Path Review August, PT 15.1 H, INR 1.2, APTT 42.6 H, S odium 135 L, Potassium 4.0, Chloride 103, Carbon Dioxide 26.0, Anion Gap 6, BUN 22 H, Creatinine 0.89, Estim Creat Clear Calc 100.02, Est GFR (MDRD) Af Amer 110, Est GFR (MDRD) Non-Af 91, BUN/Creatinine Ratio 24.8 H, Glucose 91, Calcium 8.5 Micro: Microbiology 01/04/24 12:53 Blood Culture (Wb) - Anticubital Right Blood Culture - Preliminary No growth in 48 hours. 01/04/24 11:41 Urine Catheter - Catheter Urine Culture - Final ESBL Escherichia coli 01/06/24 04:45 Vomitus Gastric Occult Blood - Final Radiography Diagnostic Testing: Radiology Impression KUB X-Ray 01/06/24 10:13 IMPRESSION: Nonspecific gas pattern. Electronically Signed: Jasvir Magana MD at 13:05 EDT , Physical Exam Narrative General: Alert, oriented, no apparent distress HEENT: Atraumatic, normocephalic Eyes: Anicteric, normal conjunctiva, extraocular movements grossly intact Neck: Supple Respiratory: Clear to auscultation bilaterally, normal respiratory effort Cardiovascular: Regular rate GI: nontender, positive bowel sounds, no rebound, guarding, rigidity, slightly distended but still overall soft Extremities: No edema, thickening of toenails Musculoskeletal: Baseline deficits noted Neuro: Baseline deficits noted Skin: No rashes appreciated Psych: Cooperative Assessment & Plan Assessment/Plan (1) Acute UTI: PLAN: Plan # Acute UTI?ESBL E. coli -Patient here with weakness and foul-smelling urine -Found to have white count of 16 and UA consistent with UTI as well as a temperature of 103, suspected LESIA with creatinine of 1.85, lactic acid that trended up to 3.6 and blood pressure that down trended to 91/54 from 135/71 with low-grade tachycardia -Patient given IV fluids, cultures obtained, started on Rocephin -This a.m. urine culture growing possible Pseudomonas, white blood cell count up trended and blood pressures remain soft -Antibiotics changed to Zosyn while pending cultures and sensitivities -Repeating lactic -Continue fluids although doing so cautiously as patient reportedly has a history of heart failure but he is unsure what kind he do not have this on file -01/05: Patient started on Zosyn yesterday, growing ESBL E. coli, overall improvement in white blood cell count and vital signs, given ESBL ID consulted -01/06: Continue cefepime started on 12/12 #LESIA -Patient with creatinine of 1.85, only value prior to current illness in our system was a creatinine of 1 in 2019 -Suspect this is LESIA and not baseline however given patient is already improving to 1.4 for, continue to trend, avoid nephrotoxic agents -Hold lisinopril -Continue treating underlying etiology and gentle hydration while monitoring volume status -01/05: Creatinine improved to 0.89 today with IV fluids with BUN down to 23. Will hold IV fluids given patient usually takes Lasix daily and appears to be volume repleted but will hold off on resuming the Lasix at this time especially given patient's poor p.o. intake. Continue to monitor daily weights and I's and O's -01/06: Appears to be resolved, hold IV fluids continue to hold IV fluids and Lasix # Worsening nausea -Patient with intermittent nausea and vomiting, seems to do better throughout the day and worse at night -Overnight gastric occult obtained which was positive, unclear significance the patient was started on IV PPI -Patient continues to have nausea and scopolamine patch ordered with Zofran as needed and Phenergan as a backup as needed -Given the above GI consulted -Patient admitted 01/03 and does not seem to have had a bowel movement, KUB with nonspecific pattern, abdomen benign and do not feel abdominal CT warranted acutely. Query if it is due to poor p.o. intake as well as patient receiving oxycodone due to his chronic pain complaints, will schedule MiraLAX and liberalize diet -Will also perform postvoid bladder scan to ensure patient not retaining urine -01/06: Continues to wax and urinary symptoms with poor p.o. intake, voiding and asking # Poor p.o. intake -Patient has not been eating well since admission, likely in part due to underlying infection however patient is improving unclear why patient continues to have poor appetite -Could be due to constipation and/or nausea -Management as above -Will start mirtazapine nightly to help with appetite as well -Will also liberalize diet and add diet supplementation -01/06: Persists, awaiting endoscopy as of # Generalized weakness -Suspect secondary to #1 -Treat underlying illness -PT/OT -01/05: Patient working with PT OT, remains significantly weak even though infection improving and will ultimately need placement -01/06: Pending endoscopy and patient progress will consider pursuing SNF in next 1 to 2 days # History of coronary artery disease status post CABG/?hx CHF unclear subtype -Continue aspirin and statin -Holding beta-lisa due to hypotension -Holding Lasix as patient requiring IV fluids -Will monitor daily weights and I's and O's given patient receiving IV fluids and Lasix being held with reported history of chronic heart failure -01/05: Blood pressure improving within proven and underlying infection, Coreg added back, can continue to reintroduce medications as patient continues to improve. Will hold further IV fluids given creatinine improved the patient overall improved, may need to resume if patient has continued poor p.o. intake. Continue to monitor volume status with daily weights and I's and O's, holding furosemide as above -01/06: Does not appear overloaded, continue present management Chronic medical problems: # Overactive bladder -Resume home oxybutynin #Hypertension -Holding home antihypertensives due to #1 with low blood pressure -01/05: Improving with treatment of infection, adding Coreg back #ALBERTO -Continue home NIPPV if applicable -01/05: Had discussed CPAP with patient yesterday as he wears 1 at home and he was agreeable at the time however overnight he refused CPAP # Hereditary spastic paraplegia -Continue baclofen, Neurontin, and supportive care, will reincrease Neurontin given improvement in kidney function and worsened pain with decreased home dose -If BP worsens or does not improve may need to consider holding baclofen and Neurontin but would not do so unless absolutely necessary given his history of spastic paraplegia -01/05: Patient back on home doses of gabapentin and baclofen, overall pain significantly improved on home regimen #DVT ppx: Heparin subcu Gali Guajardo MD Time spent in the patient's overall evaluation,decision-making process, review of diagnostic data, adjustment of management, discussion with other providers, nursing nursing and ancillary staff involved in patient's care documentation, 36 minutes Charges/Coding Visit Charges Inpatient E&M: 00400 Subs Hosp L2
--- NOTE | 2024-01-07 11:30 | EGD_PTH ---
PATIENT: ANT SHARP LOC: [facility] U#:[id number] AGE/SX: 68/M ROOM: [facility] RE01/04/[address]: Dr. Rudolph Shi MD : 1955 BED: 1 DIS: 01/08/2024 SPEC #: [id number] RECD: 01/07/24 17:48 STATUS: CYNTHIA REQ #: [id number] ANAYELI: 01/07/24 11:[address]: Johan Hoffman DEPT: SURGICAL PATHOLOGY RECD BY: Georgie Bennett ENTERED: 01/08/24 07:41 SP TYPE: EGD BIOPSY OTHR DR: MD Dr. Rudolph Arevalo MD Dr. Paige Pierce, MD Dr. Rohini Kalisetti, MD Dr. Robert Leininger, MD Tissues: Esophagus, NOS Procedures: Special Stain Group I Surgery Specimen Level IV AFB Stain (control) GMS Stain (control) Comments: @ Ordering doctor for SUIV edited from to @ leslye HAGAN at 01/08/24826 @ Submitting doctor edited from to @ leslye HAGAN at 01/08/24826 HEADER OPERATION: EGD PRE-OP DIAGNOSIS: Nausea/vomiting TISSUE SUBMITTED: Random esophagus MICROSCOPIC DIAGNOSIS Esophagus, random biopsy: Fragments of gastric mucosa. Ulceration with associated acute and chronic inflammation and granulation. Fibrinopurulent material. Negative for acid fast bacilli and fungal organisms. AM/ 01/11/2024 COMMENT AFB and GMS stains with matched controls were used in the evaluation of this case. MICROSCOPIC DESCRIPTION Slides are reviewed. GROSS DESCRIPTION Received in fixative is one container labeled with the patient's name and designated Random esophagus. The specimen consists of multiple irregular fragments of light rose soft tissue that in aggregate measure 0.6 x 0.5 x 0.1 cm. The specimen is totally submitted in one cassette. 01/08/2024 TC:2 CPT:64019,[id number]
--- NOTE | 2024-01-07 12:06 | OP.EGD_ITS ---
Patient Name: Eddie Stephen Procedure Date: 01/07/2024 11:36 AM Date of : 1955 Age: 68 Procedure: Upper GI endoscopy Indications: Dyspepsia, Suspected reflux esophagitis Providers: Johan Hoffman DO Medicines: Monitored Anesthesia Care Patient Profile: This is a 68 year old male. Refer to note in patient chart for documentation of history and physical. Patient has symptoms of acute nausea and acute vomiting. Complications: No immediate complications. Procedure: Pre-Anesthesia Assessment: - Prior to the procedure, a History and Physical was performed, and patient medications and allergies were reviewed. The patient is competent. The risks and benefits of the procedure and the sedation options and risks were discussed with the patient. All questions were answered and informed consent was obtained. Patient identification and proposed procedure were verified by the physician in the pre-procedure area. Mental Status Examination: alert and oriented. Airway Examination: normal oropharyngeal airway and neck mobility. Respiratory Examination: clear to auscultation. CV Examination: normal. Prophylactic Antibiotics: The patient does not require prophylactic antibiotics. Prior Anticoagulants: The patient has taken no anticoagulant or antiplatelet agents except for NSAID medication. ASA Grade Assessment: II - A patient with mild systemic disease. After reviewing the risks and benefits, the patient was deemed in satisfactory condition to undergo the procedure. The anesthesia plan was to use monitored anesthesia care (MAC). Immediately prior to administration of medications, the patient was re-assessed for adequacy to receive sedatives. The heart rate, respiratory rate, oxygen saturations, blood pressure, adequacy of pulmonary ventilation, and response to care were monitored throughout the procedure. The physical status of the patient was re-assessed after the procedure. After obtaining informed consent, the endoscope was passed under direct vision. Throughout the procedure, the patient's blood pressure, pulse, and oxygen saturations were monitored continuously. The Endoscope was introduced through the mouth, and advanced to the second part of duodenum. The upper GI endoscopy was accomplished without difficulty. The patient tolerated the procedure well. Scope In: 11:54:41 AM Scope Out: 11:58:33 AM Total Procedure Duration Time 0 hours 3 minutes 52 seconds Findings: LA Grade D (one or more mucosal breaks involving at least 75% of esophageal circumference) esophagitis with no bleeding was found 22 to 40 cm from the incisors. Biopsies were taken with a cold forceps for histology. Verification of patient identification for the specimen was done. Estimated blood loss was minimal. Suspect gastroparesis due to absence of peristalsis, patient symptoms and retained gastric contents. Diffuse severely erythematous mucosa without active bleeding and with no stigmata of bleeding was found in the entire duodenum. Impression: - LA Grade D erosive esophagitis with no bleeding. Biopsied. - Gastroparesis, secondary to medication. - Erythematous duodenopathy. Recommendation: - Return patient to hospital [facility] for ongoing care. - Resume previous diet. - Continue present medications. - Await pathology results. -PPI drip and scheduled IV Reglan versus gastric emptying study first Procedure Code(s): --- Professional --- 22738, Esophagogastroduodenoscopy, flexible, transoral; with biopsy, single or multiple CPT copyright 2021 [employer]. All rights reserved. The codes documented in this report are preliminary and upon patient safety officer review may be revised to meet current compliance requirements. Johan Hoffman DO 01/07/2024 12:05:25 PM This report has been signed electronically. Number of Addenda: 0 Note Initiated On: 01/07/2024 11:36 AM
--- NOTE | 2024-01-07 12:06 | OP.CCLET_ITS ---
01/07/2024 Barby Sloan Md Re : Upper GI endoscopy procedure for Eddie Stephen Dear Luther This procedure was performed on December. My impressions and recommendations are as follows: Impressions : - LA Grade D erosive esophagitis with no bleeding. Biopsied. - Gastroparesis, secondary to medication. - Erythematous duodenopathy. Recommendations : - Return patient to [facility] for ongoing care. - Resume previous diet. - Continue present medications. - Await pathology results. -PPI drip and scheduled IV Reglan versus gastric emptying study first My findings are described in the full procedure note, which is enclosed. If I can be of further assistance, please feel free to contact me at . Sincerely, Johan Friend, 01/07/2024 12:05:25 PM This report has been signed electronically.
--- NOTE | 2024-01-07 12:07 | PCM.POST.ANE ---
Anesthesia: Postop Eval I Current Vital Signs Temperature: 98.4 F Pulse Rate: 67 Blood Pressure: 100/69 Respiratory Rate: 16 Pulse Ox: 94 Oxygen Delivery Method: Room Air Assessment Airway patent: Yes Spontaneous unlabored respirations: Yes Mental status: Asleep nausea: No Vomiting: No Anesthesia Complication: No Fluid Hydration Crystalloid volume administer (ml): 400 Total IV fluid infused: 400 Progress Note Anesthesia document: Postop Eval 1 completed: Yes
--- NOTE | 2024-01-07 12:19 | PCM.POSTANE2 ---
Anesthesia Postop Eval I Sum Postop Eval Completion status Anesthesia document: Postop Eval 1 completed: Yes Anesthesia Postop Eval I Summary Anesthesia Postop Eval I Summary: Anesthesia Postop Eval I: Assessment Summary Airway patent Yes 01/07/24 12:07 [email or web address] Spontaneous unlabored Yes 01/07/24 12:07 [email or web address] respirations Mental status Asleep 01/07/24 12:07 [email or web address] nausea No 01/07/24 12:07 [email or web address] Vomiting No 01/07/24 12:07 [email or web address] Anesthesia Postop Eval I: Fluid Summary Crystalloid volume administer 400 01/07/24 12:07 [email or web address] (ml) Colloids volume administered ( ml) Blood Product volume administered (ml) Total IV fluid infused 400 01/07/24 12:07 [email or web address] Anesthesia Postop Eval I: Summary Notes Anesthesia Complication No 01/07/24 12:07 [email or web address] Anesthesia Complication Comment: Post-operative progress note Anesthesia: Postop Eval II Evaluation Mental status: Awake Pain Level: 0 nausea: No Vomiting: No
[2024-01-07] MEDS: Heparin Injection (Vial) 5,000 UNIT/ML VIAL 5000 UNIT SC ×2 (13:27→20:29)
[2024-01-07] MEDS: Gabapentin 400 MG Capsule PO ×2 (13:27→20:33)
[2024-01-07] MEDS: Oxybutynin 5 MG Tablet PO ×2 (13:27→20:28)
[2024-01-07] MEDS: Baclofen 10 MG Tablet 20 MG PO ×2 (13:27→20:29)
[2024-01-07] MEDS: Carvedilol 3.125 MG TABLET PO (13:33)
[2024-01-07 13:56] LABS: Pathologist Review Reviewed
--- NOTE | 2024-01-07 15:18 | CASEMGMT ---
SW checked with patient about facilities. Patient told SW to go ahead and check with [facility]. SW asked Priyanka to send a referral to [facility]. Tonie Alvarado SWEDISH MASSEUSE JAN
--- NOTE | 2024-01-07 15:29 | CASEMGMT ---
Addendum entered by Priyanka Merrill 01/07/24 16:21: [facility] has accepted and will submit for precert. Priyanka Merrill DC Planning Asst. Original Note: Discharge Planning Referral sent via [facility] to [facility]. Priyanka Merrill DC Planning Asst.
[2024-01-07] MEDS: Pantoprazole Sodium 40 MG in 0.9% Normal Saline (100mL MB+) 100 ML 330 MG IV (20:28)
[2024-01-07] MEDS: Ciprofloxacin 500 MG Tablet PO (20:29)
[2024-01-07] MEDS: Mirtazapine 15 MG Tablet 7.5 MG PO (20:30)
[2024-01-07] MEDS: Atorvastatin Calcium 40 MG Tablet PO (20:30)
--- NOTE | 2024-01-08 00:01 | CPS ---
Patient refused PAP therapy for the night.
[2024-01-08 03:11] VITALS: BP 149/83; PULSE 66; RESP 18; TEMP 36; O2SAT 94
[2024-01-08 04:10] VITALS: BMI 34.5
--- NOTE | 2024-01-08 07:26 | CASEMGMT ---
[facility] received approval for patient. SW will notify physician and patient. Tonie MONTOYA
--- NOTE | 2024-01-08 07:57 | CASEMGMT ---
Discharge Planning [facility] has obtained auth to admit. Priyanka Merrill DC Planning Asst.
[2024-01-08 08:31] LABS: Absolute Lymphocyte Count 1.44 X10^3/uL (0.83-4.51); Absolute Neutrophil Count 11.8 X10^3/uL (2.0-7.7); Basophil# 0.08 X10^3/uL; Basophil% 0.5 % (0-1); Eosinophil# 0.03 X10^3/uL; Eosinophils% 0.2 % (0-5); Hematocrit 37.2 % (40-54); Hemoglobin 12.3 g/dL (13.0-16.5); Lymphocyte # 1.44 X10^3/ul (0.83-4.51); Lymphocyte % 9.2 % (19-41); Mean Corp Hgb Conc 33.1 g/dL (32-36); Mean Corpuscular Hgb 28.9 pg (27.0-32.0); Mean Corpuscular Volume 87.5 fL (80-94); Mean Platelet Vol. 11.1 fl (6.2-12.0); Monocyte# 1.55 X10^3/uL; Monocyte% 9.9 % (0-10); NRBC Flagged by Analyzer 0 % (0-5); Neutrophil # 11.82 X10^3/uL (2.7-7.7); POSITIVE DIFFERENTIAL YES; Platelet Count 204 K/mm3 (150-450); RBC Distribution Width CV 12.9 % (11.6-14.6); RBC Distribution Width SD 41.1 fl (35.1-43.9); Red Blood Count 4.25 M/mm3 (4.6-6.2); White Blood Count 15.6 K/mm3 (4.4-11.0)
[2024-01-08 08:33] LABS: Differential Indicated SCAN CRITERIA MET
[2024-01-08 08:50] LABS: Anion Gap 8 (5-15); BUN 22 mg/dL (7-18); BUN/Creat Ratio 25.4 RATIO (10-20); Calcium,Total 9.1 mg/dL (8.5-10.1); Chloride 105 mmol/L (98-107); Creatinine, Serum 0.87 mg/dL (0.70-1.30); EST Glomerular Filtration Rate 93 mL/min (>60); Est Glom Filt Rate - Afr Amer 113 mL/min (>60); Estimated Creatinine Clearance 101.99 ml/min; Glucose 118 mg/dL (74-106); Potassium 4.2 mmol/L (3.5-5.1); Sodium Level 137 mmol/L (136-145)
[2024-01-08 08:56] LABS: Pathologist Review Reviewed
--- NOTE | 2024-01-08 09:16 | CASEMGMT ---
PETAR notified patient's significant other that [facility] accepted patient. Patient was out of the room at the time. Plan: d/c to [facility] when medically ready. Tonie MONTOYA
--- NOTE | 2024-01-08 10:00 | NM_ITS ---
CLINICAL: 68-year-old male with history of clinical gastroparesis. SEMI-SOLID PHASE 99m Tc SULFUR COLLOID GASTRIC EMPTYING STUDY COMPARISON: None available FINDINGS: The patient was administered 1.2 mCi of 99m Tc sulfur colloid mixed with oatmeal and consumed per os. Image acquisitions in the anterior-posterior projections were obtained for 60 minutes. There is prompt visualization of the stomach. There is no gastroesophageal reflux identified. First order kinetics are maintained throughout the duration of the acquisitions. The T ? linear fit was extrapolated to be 95.17 minutes, (Normal: 12-56 minutes). NM/Gastric Emptying Study IMPRESSION: 1. ABNORMAL 99m Tc sulfur colloid semi-solid phase (oatmeal) gastric emptying imaging examination. A. There is delayed semi-solid phase gastric emptying compared to normal controls with maintained first order kinetics throughout all components of the examination. (Ebonie et al, J Nucl Med Tech 38: 186, 2010). Electronically Signed: Greg Child DO at 12:17 EDT ,
[2024-01-08 10:10] VITALS: BP 149/87; PULSE 76; RESP 16; TEMP 37; O2SAT 95
[2024-01-08] MEDS: Oxybutynin 5 MG Tablet PO ×2 (10:50→14:29)
[2024-01-08] MEDS: Carvedilol 3.125 MG TABLET PO (10:50)
[2024-01-08] MEDS: Gabapentin 400 MG Capsule PO ×2 (10:50→14:29)
[2024-01-08] MEDS: Pantoprazole Sodium 40 MG in 0.9% Normal Saline (100mL MB+) 100 ML 330 MG IV (10:51)
[2024-01-08] MEDS: Aspirin E.C. 81 MG Tablet PO (10:51)
[2024-01-08] MEDS: Ciprofloxacin 500 MG Tablet PO (10:55)
--- NOTE | 2024-01-08 14:06 | PCM.TXEXTCAR ---
Diet Diet Order/Speech Therapy: 01/08/24 12:01 Diet: Regular - General Type of Dietary Supplement:: Small and frequent dry meal. No fried or oily or fatty food. Ensure Plus High Protein Gastric emptying study slow. Routine Orders/Code Status Suppository Type: Dulcolax 10mg Suppository Frequency: Daily PRN Therapies Extremity Affected:: Bilateral Lower Physical Therapy: Eval and Treat Occupational Therapy: Eval and Treat Speech Therapy: Eval and Treat Problem/Diagnosis (1) Acute UTI: Status: Acute Code(s): N39.0 - Urinary tract infection, site not specified Allergies/Procedures Done in Hospital Allergies No Known Allergies Allergy (Verified 01/07/24 10:39) Type of Care/Length of Stay Estimated LOS: Convalescent Care Less Than 30 days Type of Care Needed: Skilled Rehab Potential: Good Prognosis: Good Additional Orders/Day of Discharge Day of Discharge: 01/08/24 Dietary and Speech Recommendations Dietitian Recommendations/Changes: Will continue liberalized regular diet with consistency/texture as per SOCIAL SERVICE TECHNICIAN. Will continue 120mL ensure plus HP 4 times per day w/ medpass. Monitor blood glucose level and restrict dietary carbohydrate as needed. Trend weights closely and adjust ONS as needed to optimize nutrition and prevent energy/pro depletion. Discharge Plan Admission Admit Date/Time: 01/04/24 14:03 Primary Reason for Your Visit: ESBL E. coli UTI, nausea, decreased gastric Attending Provider: Rudolph Shi Primary Care Provider: Barby Sloan Consulting Providers: Jose Hartley; Usama Sewell; Gali Guajardo Instructions Additional Instructions / Restrictions: Hold furosemide for 5 days then can only give 20 mg as needed for leg swelling Discharge Orders/Prescriptions Prescriptions: New ciprofloxacin HCl 500 mg Tablet 500 mg PO BID Qty: 0 0RF Rx Instructions: Stop date 01/13/2024. baclofen 10 mg Tablet 20 mg PO 1400 Qty: 0 0RF baclofen 10 mg Tablet 20 mg PO 2000 Qty: 0 0RF baclofen 10 mg Tablet 30 mg PO 0600 Qty: 0 0RF metoclopramide HCl 5 mg tablet 5 mg PO TIDCM 30 Days Qty: 90 0RF Rx Instructions: Advised to take half an hour before the meal pantoprazole [Protonix] 40 mg tablet,delayed release (DR/EC) 40 mg PO BID Qty: 60 1RF Continued atorvastatin 40 MG tablet 40 mg PO DAILY aspirin 81 MG tablet,delayed release (DR/EC) 81 mg PO DAILY oxybutynin chloride 5 MG tablet 5 mg PO TID carvedilol 6.25 mg tablet 6.25 mg PO BID Rx Instructions: TAKE ONE TABLET BY MOUTH TWICE A DAY WITH A 3.125MG TABLET. gabapentin 400 mg capsule 400 mg PO TID carvedilol 3.125 mg tablet 3.125 mg PO BID Rx Instructions: TAKE ONE TABLET BY MOUTH TWICE A DAY WITH A 6.25MG TABLET. A Thru Z Select 500-300-250 mcg tablet 1 tab PO DAILY doxazosin 4 mg tablet 4 mg PO DAILY Held furosemide 40 mg tablet 40 mg PO DAILY Hold Instructions: Hold for 3 days and start low-dose 20 mg daily lisinopril 20 mg tablet 20 mg PO DAILY Hold Instructions: Hold for 3 days, start lower dose 5 mg daily. Discontinued baclofen 20 MG tablet 60 mg PO 0600 baclofen 20 MG tablet 40 mg PO 1400 baclofen 20 MG tablet 40 mg PO 1999 Referrals / Follow Up: Johan Hoffman DO [Med Staff - Active Staff] - Within 1 Month (For gastroparesis) Barby Sloan MD [Primary Care Provider] - Usama Seewll MD [Med Staff - Active Staff] - Within 1 Month (For ESBL E. coli UTI as needed) Disposition Disposition (needs filled in before D/C Order can be placed): Longterm Facility
[2024-01-08 14:19] VITALS: BP 155/91; PULSE 77; RESP 16; TEMP 36.8; O2SAT 93
--- NOTE | 2024-01-08 14:19 | DS.PCM_ITS ---
Providers Date of Admission: 01/04/24 Date of Discharge: 01/08/24 Primary Care Physician: Dr. Barby Sloan MD Consultations 01/06/24 07:42 Consult: Gastroenterology Routine Consulting Provider: [facility] Reason for Consult: n/v gastric occult ordered over night now +, unclear significance EMERGENT Consult: No Notified: Yes Date Notified: 01/06/24 Time Notified: 07:46 Method of Notification: Text 01/06/24 08:19 Consult: Infectious Disease Routine Consulting Provider: Usama Sewell Reason for Consult: ESBL ecoli uti EMERGENT Consult: No Notified: Yes Date Notified: 01/06/24 Time Notified: 08:19 Method of Notification: Text Reason For Visit: UTI Diagnosis Discharge Diagnosis (1) Acute UTI: Status: Acute Code(s): N39.0 - Urinary tract infection, site not specified Medications at Discharge Home Medications aspirin 81 mg tablet,delayed release 81 mg PO DAILY HEART HEALTH 11/08/18 atorvastatin 40 mg tablet 40 mg PO DAILY CHOLESTEROL 11/08/18 oxybutynin chloride 5 mg tablet 5 mg PO TID OVERACTIVE BLADDER 11/08/18 carvedilol 3.125 mg tablet 3.125 mg PO BID HEART 01/01/24 carvedilol 6.25 mg tablet 6.25 mg PO BID HEART 01/01/24 furosemide 40 mg tablet 40 mg PO DAILY EDEMA 01/01/24 gabapentin 400 mg capsule 400 mg PO TID NEUROPATHY 01/01/24 lisinopril 20 mg tablet 20 mg PO DAILY BLOOD PRESSURE 01/01/24 [id number] acid 500 mcg-lycopene 300 mcg-lutein 250 mcg tablet (A Thru Z Select) 1 tab PO DAILY SUPPLEMENT 01/01/24 doxazosin 4 mg tablet 4 mg PO DAILY BLOOD PRESSURE 01/04/24 baclofen 10 mg tablet 20 mg (2 x 10 mg) PO 1400 #0 tabs 01/08/24 baclofen 10 mg tablet 20 mg (2 x 10 mg) PO 2000 #0 tabs 01/08/24 baclofen 10 mg tablet 30 mg (3 x 10 mg) PO 0600 #0 tabs 01/08/24 ciprofloxacin HCl 500 mg tablet 500 mg PO BID #0 tabs 01/08/24 metoclopramide HCl 5 mg tablet 5 mg PO TIDCM 1 month #90 tabs 01/08/24 pantoprazole 40 mg tablet,delayed release (Protonix) 40 mg PO BID #60 tabs 01/08/24 Hospital Course Summary of Care Provided Hospital Course: 68-year-old gentleman was admitted with generalized weakness, slow decline over the last week, multiple recurrent fall without any significant injuries. Patient has history of hereditary spastic paraplegia and has chronic gait instability, muscle spasticity, tremor in his voice. # Acute UTI?ESBL E. coli: Foul-smelling urine. UA consistent with UTI. Temperature 93 Fahrenheit. ID was consulted. Initially started on IV ceftriaxone changed to Zosyn as urine culture was reported growing possible Pseudomonas. Then changed to Cipro. Urine culture shows ESBL E. coli UTI. On Cipro stop date 01/13/2024 #LESIA suspected prerenal -Patient with creatinine of 1.85, only value prior to current illness in our system was a creatinine of 1 in 2019 Treated with IV fluid and holding Lasix and lisinopril. Last BUN/creatinine 22/0.8 cm # Worsening nausea, decreased p.o. intake most likely due to gastroparesis: Patient had occult blood positive. GI was consulted EGD was done on 01/07/2024 Impression: - LA Grade D erosive esophagitis with no bleeding. Biopsied. - Gastroparesis, secondary to medication. - Erythematous duodenopathy. Recommendation: - Return patient to [facility] for ongoing care. - Resume previous diet. - Continue present medications. - Await pathology results. -PPI drip and scheduled IV Reglan versus gastric emptying study first Gastric emptying study was done which shows slow emptying compared to the normal control. Patient has history of spastic paraplegia and probably involving a smooth muscle too. Stated with pantoprazole 40 IV every 12 hourly changed to oral twice daily. Discharged on pantoprazole 40 mg twice daily and metoclopramide 5 mg 3 times daily AC-hour before meal for 1 month. Follow-up in GI clinic in 1 month Generalized weakness, recurrent fall, decreased ADL and gait instability: PT and OT was done. Recommended SNF for further rehab # History of coronary artery disease status post CABG/?hx CHF unclear subtype -Continue aspirin and statin Medications was optimized. Furosemide and lisinopril held. Follow-up clinically. Furosemide can be resumed 20 mg as needed for Dexlido after 5 days. Start lisinopril lower dose, 5 mg daily Chronic medical problems: # Overactive bladder -Resume home oxybutynin #Hypertension -Holding home antihypertensives due to #1 with low blood pressure -01/05: Improving with treatment of infection, adding Coreg back #ALBERTO -Continue home NIPPV/ # Hereditary spastic paraplegia -Continue baclofen, Neurontin, and supportive care, will reincrease Neurontin given improvement in kidney function and worsened pain with decreased home dose -If BP worsens or does not improve may need to consider holding baclofen and Neurontin but would not do so unless absolutely necessary given his history of spastic paraplegia Patient on baclofen and gabapentin. Dose of baclofen decreased as patient getting recurrent fall. Follow-up with neurologist #DVT ppx: Heparin subcu Physical Exam Narrative Seen and examined. Patient has history of recurrent fall, gait instability, disequilibrium Physical exam General: Alert, Oriented x3, Cooperative HEENT: Atraumatic, PERRLA, EOMI, Normocephalic Oral: No Gingival or Mucosal Lesions/ Ulcerations Neck: Supple, No JVD, Negative Carotid Bruits Chest wall/Lungs: Air entry diminished in bilateral lung bases. No crepitation/rhonchi Cardiovascular: Regular rate, Regular Rhythm, Normal S1, Normal S2, No M/G/R Abdomen: Bowel Sounds Present, Soft, Non Tender, Non-Distended : No dysuria. No renal angle tenderness. No suprapubic tenderness. Extremities: No edema, Capillary Refill Less than 3 Seconds Skin: No rashes, No breakdown Musculoskeletal: No Tenderness to Palpation of Joints or Extremities Neurological: Cranial nerves II-XII grossly intact, DTR 2-3/4. Hyperreflexia. Muscle spasticity at knee and hip joints. Voice tremor Psych/Mental Status: Flat affect. Weight / BMI Weight Weight: 240 lb 15.444 oz Body Mass Index (BMI) 34.5 ABG / Lab / Microbiology Data 01/08/24 07:56 01/08/24 07:56 Laboratory: Laboratory Results - last 24 hr 01/06/24 06:40: Diff Path Review Reviewed 01/08/24 07:56: WBC 15.6 H, RBC 4.25 L, Hgb 12.3 L, Hct 37.2 L, MCV 87.5, MCH 28.9, MCHC 33.1, RDW Std Deviation 41.1, RDW Coeff of Lorri 12.9, Plt Count 204, MPV 11.1, Immature Gran % (Auto) 4.200 H, Neut % (Auto) 76.0 H, Lymph % (Auto) 9.2 L, Meeker % (Auto) 9.9, Eos % (Auto) 0.2, Baso % (Auto) 0.5, Absolute Neuts (auto) 11.8 H, Absolute Lymphs (auto) 1.44, Nucleated RBC % 0, Differential Comment COMMENT, Diff Path Review August foll, Sodium 137, Potassium 4.2, Chloride 105, Carbon Dioxide 24.0, Anion Gap 8, BUN 22 H, Creatinine 0.87, Estim Creat Clear Calc 101.99, Est GFR (MDRD) Af Amer 113, Est GFR (MDRD) Non-Af 93, B UN/Creatinine Ratio 25.4 H, Glucose 118 H, Calcium 9.1 Microbiology: Microbiology 01/08/24 04:00 Stool Clostridioides difficile (PCR) - Final 01/04/24 12:53 Blood Culture (Wb) - Anticubital Right Blood Culture - Preliminary No growth in 48 hours. 01/04/24 11:41 Urine Catheter - Catheter Urine Culture - Final ESBL Escherichia coli 01/06/24 04:45 Vomitus Gastric Occult Blood - Final Radiography Diagnostic Testing: Radiology Impression Gastric Emptying Nuclear Medicine 01/08/24 10:00 IMPRESSION: 1. ABNORMAL 99m Tc sulfur colloid semi-solid phase (oatmeal) gastric emptying imaging examination. A. There is delayed semi-solid phase gastric emptying compared to normal controls with maintained first order kinetics throughout all components of the examination. (Ebonie et al, J Nucl Med Tech 38: 186, 2010). Electronically Signed: Greg Child DO at 12:17 EDT , Meaningful Use Info Meaningful Use Meaningful Use Diagnoses (Choose all that apply): None applicable Ischemic Stroke Statin Dosing Therapy Reference: STATIN DOSE THERAPY REFERENCE: * Patients > 75 years receive moderate or high dose statin therapy. * Patients 75 years or YOUNGER should receive HIGH intensity statin dose unless contraindicated. You will be required to document reason for non-treatment if statin daily dose does not meet guidelines. HIGH DOSE STATIN THERAPY DAILY Atorvastatin > than or = to 40 mg Rosuvastatin > than or = to 20 mg Amlodipine + Atorvastatin > than or = to 2.5/40 mg Ezetimibe + Simvastatin 10/80 mg Simvastatin 80mg Discharge Plan Admission Admit Date/Time: 01/04/24 14:03 Primary Reason for Your Visit: ESBL E. coli UTI, nausea, decreased gastric Attending Provider: Rudolph Shi Primary Care Provider: Barby Sloan Consulting Providers: Jose Hartley; Usama Sewell; Gali Guajardo Instructions Additional Instructions / Restrictions: Hold furosemide for 5 days then can only give 20 mg as needed for leg swelling Follow-up with his neurologist, Dr. Mclaughlin, [facility]. Discharge Orders/Prescriptions Prescriptions: New ciprofloxacin HCl 500 mg Tablet 500 mg PO BID Qty: 0 0RF Rx Instructions: Stop date 01/13/2024. baclofen 10 mg Tablet 20 mg PO 1400 Qty: 0 0RF baclofen 10 mg Tablet 20 mg PO 2000 Qty: 0 0RF baclofen 10 mg Tablet 30 mg PO 0600 Qty: 0 0RF metoclopramide HCl 5 mg tablet 5 mg PO TIDCM 30 Days Qty: 90 0RF Rx Instructions: Advised to take half an hour before the meal pantoprazole [Protonix] 40 mg tablet,delayed release (DR/EC) 40 mg PO BID Qty: 60 1RF Continued atorvastatin 40 MG tablet 40 mg PO DAILY aspirin 81 MG tablet,delayed release (DR/EC) 81 mg PO DAILY oxybutynin chloride 5 MG tablet 5 mg PO TID carvedilol 6.25 mg tablet 6.25 mg PO BID Rx Instructions: TAKE ONE TABLET BY MOUTH TWICE A DAY WITH A 3.125MG TABLET. gabapentin 400 mg capsule 400 mg PO TID carvedilol 3.125 mg tablet 3.125 mg PO BID Rx Instructions: TAKE ONE TABLET BY MOUTH TWICE A DAY WITH A 6.25MG TABLET. A Thru Z Select 500-300-250 mcg tablet 1 tab PO DAILY doxazosin 4 mg tablet 4 mg PO DAILY Held furosemide 40 mg tablet 40 mg PO DAILY Hold Instructions: Hold for 3 days and start low-dose 20 mg daily lisinopril 20 mg tablet 20 mg PO DAILY Hold Instructions: Hold for 3 days, start lower dose 5 mg daily. Discontinued baclofen 20 MG tablet 60 mg PO 0600 baclofen 20 MG tablet 40 mg PO 1400 baclofen 20 MG tablet 40 mg PO 1999 Referrals / Follow Up: Johan Hoffman DO [Med Staff - Active Staff] - Within 1 Month (For gastroparesis) Barby Sloan MD [Primary Care Provider] - Usama Sewell MD [Med Staff - Active Staff] - Within 1 Month (For ESBL E. coli UTI as needed) Disposition Disposition (needs filled in before D/C Order can be placed): Care Home Facility Charges/Coding Visit Charges Inpatient E&M: 44137 Disch Hosp >30min
--- NOTE | 2024-01-08 14:28 | CASEMGMT ---
Patient is ready for discharge to [facility]. SW completed a 7000 in [employer] system. Patient stated he has a friend that will be transporting him. SW asked patient if he thinks he will be okay getting in and out of a vehicle. Patient said his friend that is taking him is an utility driver. PETAR sent orders and med list to [facility] via [employer]. PETAR also notified [facility] via [facility] that patient's friend will be bringing him within the next hour. Plan: d/c to [facility] under skilled level of care on a convalescent stay. Patient's friend will transport him via private vehicle. Tonie Alvarado FIRER POWERHOUSE JAN
[2024-01-08 14:29] LABS: Pathologist Review Reviewed
[2024-01-08] MEDS: Baclofen 10 MG Tablet 20 MG PO (14:30)
--- NOTE | 2024-01-08 15:40 | CASEMGMT ---
SW was informed patient was taken down to the main entrance and there is no ride for patient. Patient called his family and they said they were at the care home waiting on him. Patient was brought back up to PCU. SW talked with patient and let him know SW will have transport set up for him. Priyanka rose/marco a strategic planning consultant set up transport for 6p. PETAR notified [facility], patient, and charge accounts audit clerk. Tonie Alvarado CANCER GENETIC COUNSELOR JAN
--- NOTE | 2024-01-08 15:53 | CASEMGMT ---
Discharge Planning. Physicians (Brenda) will transport patient by wheelchair at 6p. SW updated. Priyanka Merrill DC Planning Asst.
== END 2024-01-08 19:21 | disposition skilled nursing facility (03) | DRG 690 ==
LOC: ED 12:21 → PCU 14:15
PROVIDERS: Anesthesiology; Internal Medicine; Internal Medicine Gastroenterology; Admitting Provider Family Medicine; Emergency Provider Emergency Medicine; PCP Student in an Organized Health Care Education/Training Program; Visit Provider Internal Medicine
PROC: 0DJ08ZZ Inspection of Upper Intestinal Tract, Via Natural or Artificial Opening Endoscopic (ICD-10-PCS; CPT 43235; principal; 2024-01-07 11:25)
DX: N39.0 Urinary tract infection, site not specified (principal); G11.4 Hereditary spastic paraplegia; N17.9 Acute kidney failure, unspecified; K22.10 Ulcer of esophagus without bleeding; Z16.12 Extended spectrum beta lactamase (ESBL) resistance; I11.0 Hypertensive heart disease with heart failure; I50.9 Heart failure, unspecified; E78.5 Hyperlipidemia, unspecified; I25.10 Atherosclerotic heart disease of native coronary artery without angina pectoris; G47.33 Obstructive sleep apnea (adult) (pediatric); K31.84 Gastroparesis; R53.81 Other malaise; R53.1 Weakness; N32.81 Overactive bladder; R41.82 Altered mental status, unspecified; Z79.82 Long term (current) use of aspirin; B96.20 Unspecified Escherichia coli [E. coli] as the cause of diseases classified elsewhere; T50.905A Adverse effect of unspecified drugs, medicaments and biological substances, initial encounter; Z79.899 Other long term (current) drug therapy; Z95.1 Presence of aortocoronary bypass graft
CPT/HCPCS: 36415; 70450; 71045; 72131; 73502; 74018; 78264; 80048; 80076; 81001; 82140; 82271; 82550; 82803; 82962; 83605; 83690; 83735; 84443; 84484; 85025; 85610; 85730; 87040; 87077; 87086; 87088; 87186; 87493; 88305; 88312; 93005; 96360; 96361; 97162; 97166; 97530; 97535; 97802; 99283; 99285; A9541; J7030; J7050; J7120; A4216; J2405

== ENCOUNTER 2024-03-21 16:58 | Emergency (ER) | payer MEDICARE, SELFPAY ==
[2024-03-21 16:59] VITALS: BP 100/71; PULSE 91; RESP 20; TEMP 38.9; O2SAT 94
--- NOTE | 2024-03-21 17:09 | EKG12_ITS ---
Test Reason : Blood Pressure : */* mmHG Vent. Rate : 84 BPM Atrial Rate : 84 BPM P-R Int : 152 ms QRS Dur : 92 ms QT Int : 350 ms P-R-T Axes : 42 14 65 degrees QTcB Int : 413 ms Poor data quality, interpretation may be adversely affected Normal sinus rhythm Normal ECG Confirmed by Gee Nagy ([id number]), school photograph editor KEN PINEDA ([id number]) on 03/22/2024 10:42:19 AM Referred By: Confirmed By: Gee Nagy
[2024-03-21 17:12] VITALS: BMI 35.8
--- NOTE | 2024-03-21 17:12 | EDS_ITS ---
[facility] <AMBER Rush - Last Filed: 03/21/24 19:03> History of Present Illness Chief Complaint: Complaint Narrative Narrative: Patient is a 68-year-old male with history of hereditary spastic paraplegia chronic weakness, history of UTI presents to the emergency department for difficulty urinating, more incontinence, fever and chills. Patient states he was seen here for something similar in December 2023. Patient states he was admitted with sepsis at that time. Patient dates he has been more incontinent with urine and is here for evaluation. [facility] <AMBER Rush - Last Filed: 03/21/24 19:03> [facility] Medical History GERD (gastroesophageal reflux disease) History of rectal cancer ALBERTO on CPAP HLD (hyperlipidemia) CAD (coronary artery disease) Non-smoker Hypertension Hereditary spastic paraplegia CHF (congestive heart failure) Home Medications ?Medication ?Instructions ?Recorded ?Last Taken ?Type aspirin 81 mg tablet,delayed 81 mg PO DAILY HEART HEALTH 11/08/18 01/04/24 History release atorvastatin 40 mg tablet 40 mg PO DAILY CHOLESTEROL 11/08/18 01/04/24 History oxybutynin chloride 5 mg tablet 5 mg PO TID OVERACTIVE BLADDER 11/08/18 01/04/24 History carvedilol 3.125 mg tablet 3.125 mg PO BID HEART 01/01/24 01/03/24 History carvedilol 6.25 mg tablet 6.25 mg PO BID HEART 01/01/24 01/03/24 History gabapentin 400 mg capsule 400 mg PO TID NEUROPATHY 01/01/24 01/04/24 History gudlsplq-tcn-touap acid 500 1 tab PO DAILY SUPPLEMENT 01/01/24 01/04/24 History mcg-lycopene 300 mcg-lutein 250 mcg tablet (A Thru Z Select) doxazosin 4 mg tablet 4 mg PO DAILY BLOOD PRESSURE 01/04/24 01/04/24 History baclofen 10 mg tablet 20 mg (2 x 10 mg) PO 1400 #0 tabs 01/08/24 Unknown Rx baclofen 10 mg tablet 20 mg (2 x 10 mg) PO 2000 #0 tabs 01/08/24 Unknown Rx baclofen 10 mg tablet 30 mg (3 x 10 mg) PO 0600 #0 tabs 01/08/24 Unknown Rx famotidine 20 mg tablet 20 mg PO QHS #30 tabs 02/11/24 Unknown Rx furosemide 20 mg tablet 20 mg PO QAM 02/11/24 Unknown History lisinopril 5 mg tablet 5 mg PO QDAY 02/11/24 Unknown History metoclopramide HCl 5 mg tablet 5 mg PO BIDWMEAL #60 tabs 02/11/24 Unknown Rx pantoprazole 40 mg tablet,delayed 40 mg PO BID #60 tabs 02/11/24 Unknown Rx release (Protonix) sulfamethoxazole 800 1 tab PO BID #14 tabs 03/21/24 Unknown Rx mg-trimethoprim 160 mg tablet (Bactrim DS) Allergy/AdvReac Type Severity Reaction Status Date / Time No Known Allergies Allergy Verified 03/21/24 16:58 Family History Father Heart disease Hypertension Mother Osteoarthritis Surgical History History of ankle surgery History of tonsillectomy and adenoidectomy History of rectal surgery Hx of CABG H/O hand surgery Social History household members: significant other Smoking Status: Never smoker alcohol intake: current alcohol intake frequency: holidays/special occasions only substance use type: does not use ROS <AMBER Rush - Last Filed: 03/21/24 19:03> ROS ED ROS Narrative Constitutional: Negative for weight loss. Positive fever, chills, weakness Eyes: Negative for vision loss, vision change, double vision ENT: Negative for any sore throat, ear pain, congestion Cardiovascular: Negative for any chest pain, tightness, palpitations Respiratory: Negative for any cough, sputum production, hemoptysis, dyspnea, dyspnea on exertion, orthopnea Gastrointestinal: Negative for any abdominal pain, nausea, vomiting, diarrhea, c onstipation, blood in stool, blood in vomit : Negative for any dysuria, retention, blood in urine. Positive for worsening frequency, incontinence Muscle skeletal: Negative for any neck pain, back pain Neurological: Negative for any headache, syncope, dizziness Skin: Negative for any rashes, itching, abrasions, lacerations Psychiatric: Negative for any depression, anxiety, stress, suicidal ideation, homicidal ideation Hematologic: Negative for any excessive bruising, easy bleeding EXAM <AMBER Rush - Last Filed: 03/21/24 19:03> Physical Exam Narrative Exam Narrative: Vital signs reviewed. Patient blood pressure 100/71, patient's temperature orally was 102.1. HEET: Head normocephalic atraumatic, TMs clear bilaterally. Posterior pharynx is clear, dry mucous membranes. Nares clear bilaterally. Neck: Supple with no lymphadenopathy or tenderness. No signs of meningismus. Cardiac: Regular rate and rhythm no murmurs gallops or rubs, equal peripheral pulses bilaterally. Respiratory: Lungs clear to auscultation bilaterally. No chest tenderness. Abdomen: Soft, nontender, nondistended. No abdominal bruit or pulsatile masses. No hepatosplenomegaly. Patient was incontinent of urine, he did have strong smelling urine. Extremities: No peripheral edema, no signs of gross trauma or deformity. Active full range of motion of all extremities. Patient has obvious muscle weakness to bilateral lower extremities. Neuro: Cranial nerves II through XII intact, no focal neurological deficits. Neurological exam is stable for patient. Skin: Clean dry and intact with no rash, purpura, petechiae, vesicles or pustules. Backs/flank: No CVA tenderness, no midline spinal tenderness, no deformity. Psych: Normal mood and affect. No SI, HI or acute psychosis. Const Vital Signs: 03/21/24 16:59 03/21/24 17:13 03/21/24 17:20 Temperature 102.1 F H 102.1 F H Temperature Source Oral Oral Pulse Rate 91 86 Respiratory Rate 20 H 16 Blood Pressure 100/71 144/72 H Blood Pressure Mean 80 96 Pulse Ox 94 96 Oxygen Delivery Method Room Air Room Air Room Air 03/21/24 18:13 03/21/24 18:13 Temperature 99.1 F 99.1 F Temperature Source Oral Oral Pulse Rate 83 83 Respiratory Rate 19 H 19 H Blood Pressure 134/65 H 134/65 H Blood Pressure Mean 88 88 Pulse Ox 93 98 Oxygen Delivery Method Nasal Cannula <Dr. Delgado Davison MD - Last Filed: 03/21/24 17:19> Physical Exam Const Vital Signs: 03/21/24 16:59 03/21/24 17:13 03/21/24 17:20 Temperature 102.1 F H 102.1 F H Temperature Source Oral Oral Pulse Rate 91 86 Respiratory Rate 20 H 16 Blood Pressure 100/71 144/72 H Blood Pressure Mean 80 96 Pulse Ox 94 96 Oxygen Delivery Method Room Air Room Air Room Air 03/21/24 18:13 03/21/24 18:13 Temperature 99.1 F 99.1 F Temperature Source Oral Oral Pulse Rate 83 83 Respiratory Rate 19 H 19 H Blood Pressure 134/65 H 134/65 H Blood Pressure Mean 88 88 Pulse Ox 93 98 Oxygen Delivery Method Nasal Cannula [facility] [place] <AMBER Rush - Last Filed: 03/21/24 19:03> [facility] [place] Lab Data Labs: Laboratory Results - last 24 hr 03/21/24 03/21/24 17:14 17:15 WBC 12.6 H RBC 4.41 L Hgb 12.7 L Hct 38.3 L MCV 86.8 MCH 28.8 MCHC 33.2 RDW Std Deviation 44.7 H RDW Coeff of Lorri 13.8 Plt Count 181 MPV 10.8 Neut % (Auto) Not Reportable Baso % (Auto) 12.6 H Absolute Neuts (auto) 10.2 H Absolute Lymphs (auto) 1.00 Total Counted 100 Neutrophils % (Manual) 81 H Lymphocytes % (Manual) 8 L Monocytes % (Manual) 10 Metamyelocytes % 1 Differential Comment SEE COMMENT Diff Path Review May foll Platelet Estimate ADEQUATE RBC Morphology NORM C+C Anisocytosis RARE PT 14.3 INR 1.1 APTT 32.6 Sodium 134 L Potassium 3.4 L Chloride 100 Carbon Dioxide 26.0 Anion Gap 9 BUN 16 Creatinine 1.15 Estim Creat Clear Calc 78.54 Est GFR (MDRD) Af Amer 81 Est GFR (MDRD) Non-Af 67 BUN/Creatinine Ratio 13.9 Glucose 100 Lactic Acid 1.2 Calcium 8.6 Total Bilirubin 1.00 AST 15 ALT 18 Alkaline Phosphatase 71 Total Protein 7.1 Albumin 3.0 L Globulin 4.1 Albumin/Globulin Ratio 0.7 L Urine Color Yellow Urine Clarity Sl. Cloudy Urine pH 5.0 Ur Specific Declo 1.010 Urine Protein 30 H Urine Glucose (UA) Normal Urine Ketones 15 H Urine Occult Blood 50 H Urine Nitrite Positive H Urine Bilirubin Negative Urine Urobilinogen Normal Ur Leukocyte Esterase 100 H Urine RBC 0-5 SEEN Urine WBC 25-50 SEEN Ur Squamous Epith Cells 0 SEEN Urine Bacteria 2+ Urine Mucus 0 SEEN EKG Normal sinus rhythm: Attestation: I personally reviewed and interpreted this EKG as follows: Interpretation: Sinus Rhythm Comments: Normal sinus rhythm, rate of 84 bpm, VA interval 152 ms, QRS duration 92 ms, no acute ST elevation, no acute infarct noted. Treatment and Re-Evaluation :: Differential diagnosis includes however is not limited to: Septicemia, UTI, electrolyte abnormality, COVID-19, influenza, RSV, community-acquired pneumonia Patient appears to be in no obvious respiratory distress however patient's blood pressure is 100/71, temperature 102.1. Patient will receive a full septic workup including chest x-ray, do blood cultures, lactic acid, basic laboratory eval as well as urinalysis. Chest x-ray will be obtained as well as viral swab. Patient will be reevaluated. IV fluids given. All radiologic examinations were read, reviewed by the emergency department attending. From these reads, a plan of care will be put in place. Oral Tylenol be given. Patient on reevaluation was feeling much better. Patient's chest x-ray was negative for any acute process. Laboratory values show slight leukocytosis with white blood count 12.6, hemoglobin 12.7 which is stable. Patient's PT/INR within normal limits, chemistries were unremarkable, creatinine was stable at 1.15. Lactic acid was negative. Patient's urinalysis was positive for infection with 2+ bacteria 25-50 white blood cells, 100 leukocytes, positive nitrites. This was sent for culture. Patient was given IV fluids, IV Rocephin. Patient on reevaluation felt much better. I did offer admission, patient states that he actually feels much better, he would like to be discharged home. Patient was given strict return precaution. Patient vital signs are stable, he be placed on Bactrim twice a day for 7 days. Instructed return for any worsening symptoms. All questions answered, stable for discharge. <Dr. Delgado Davison MD - Last Filed: 03/21/24 17:19> [facility] Narrative Medical decision making narrative: I have personally performed a face to face assessment of the patient and have reviewed the YAMILA Note. I performed a substantive portion of the visit including all aspects of the following. My grande findings include: History is urinary symptoms with foul-smelling urine, incontinence, and frequency for the past couple days, some chills yesterday and fever today. Denies any abdominal pain, back pain, vomiting. Has history of spastic paralysis, usually does not have any issues urinating on his own. States he drinks plenty of water. Exam is alert and well-appearing, abdomen soft nontender nondistended, lungs clear, heart regular no tachycardia, no CVA tenderness. Stable weakness in both lower extremities. Medical Decison Making septic workup and empiric antibiotics for likely UTI. Other additions or changes: [None] Lab Data Labs: Laboratory Results - last 24 hr 03/21/24 03/21/24 17:14 17:15 WBC 12.6 H RBC 4.41 L Hgb 12.7 L Hct 38.3 L MCV 86.8 MCH 28.8 MCHC 33.2 RDW Std Deviation 44.7 H RDW Coeff of Lorri 13.8 Plt Count 181 MPV 10.8 Neut % (Auto) Not Reportable Baso % (Auto) 12.6 H Absolute Neuts (auto) 10.2 H Absolute Lymphs (auto) 1.00 Total Counted 100 Neutrophils % (Manual) 81 H Lymphocytes % (Manual) 8 L Monocytes % (Manual) 10 Metamyelocytes % 1 Differential Comment SEE COMMENT Diff Path Review May foll Platelet Estimate ADEQUATE RBC Morphology NORM C+C Anisocytosis RARE PT 14.3 INR 1.1 APTT 32.6 Sodium 134 L Potassium 3.4 L Chloride 100 Carbon Dioxide 26.0 Anion Gap 9 BUN 16 Creatinine 1.15 Estim Creat Clear Calc 78.54 Est GFR (MDRD) Af Amer 81 Est GFR (MDRD) Non-Af 67 BUN/Creatinine Ratio 13.9 Glucose 100 Lactic Acid 1.2 Calcium 8.6 Total Bilirubin 1.00 AST 15 ALT 18 Alkaline Phosphatase 71 Total Protein 7.1 Albumin 3.0 L Globulin 4.1 Albumin/Globulin Ratio 0.7 L Urine Color Yellow Urine Clarity Sl. Cloudy Urine pH 5.0 Ur Specific Declo 1.010 Urine Protein 30 H Urine Glucose (UA) Normal Urine Ketones 15 H Urine Occult Blood 50 H Urine Nitrite Positive H Urine Bilirubin Negative Urine Urobilinogen Normal Ur Leukocyte Esterase 100 H Urine RBC 0-5 SEEN Urine WBC 25-50 SEEN Ur Squamous Epith Cells 0 SEEN Urine Bacteria 2+ Urine Mucus 0 SEEN Discharge Plan Triage Chief Complaint: Complaint ED Midlevel Provider: Kirk Batista ED Provider: Delgado Davison Dx/Rx/DC Orders Clinical Impression: Acute UTI Instructions: Urinary Tract Infections in Men Prescriptions: New sulfamethoxazole-trimethoprim [Bactrim DS] 800-160 mg tablet 1 tab PO BID Qty: 14 0RF No Action furosemide 20 mg tablet 20 mg PO QAM lisinopril 5 mg tablet 5 mg PO QDAY famotidine 20 mg tablet 20 mg PO QHS Qty: 30 5RF pantoprazole [Protonix] 40 mg tablet,delayed release (DR/EC) 40 mg PO BID Qty: 60 5RF metoclopramide HCl 5 mg tablet 5 mg PO BIDWMEAL Qty: 60 2RF Rx Instructions: administer 30 minutes before meals atorvastatin 40 MG tablet 40 mg PO DAILY aspirin 81 MG tablet,delayed release (DR/EC) 81 mg PO DAILY oxybutynin chloride 5 MG tablet 5 mg PO TID carvedilol 6.25 mg tablet 6.25 mg PO BID Rx Instructions: TAKE ONE TABLET BY MOUTH TWICE A DAY WITH A 3.125MG TABLET. gabapentin 400 mg capsule 400 mg PO TID carvedilol 3.125 mg tablet 3.125 mg PO BID Rx Instructions: TAKE ONE TABLET BY MOUTH TWICE A DAY WITH A 6.25MG TABLET. A Thru Z Select 500-300-250 mcg tablet 1 tab PO DAILY doxazosin 4 mg tablet 4 mg PO DAILY baclofen 10 mg Tablet 20 mg PO 1400 Qty: 0 0RF baclofen 10 mg Tablet 20 mg PO 2000 Qty: 0 0RF baclofen 10 mg Tablet 30 mg PO 0600 Qty: 0 0RF Primary Care Provider: Barby Sloan Referrals: Barby Sloan MD [Primary Care Provider] - Activity Restrictions/Additional Instructions: Take the antibiotics until finished. You need to return here for any worsening fever chills, nausea or vomiting. Print Language: Syriac Disposition Disposition: Home, Self Care
[2024-03-21 17:20] VITALS: BP 144/72; PULSE 86; RESP 16; TEMP 38.9; O2SAT 96
[2024-03-21] MEDS: 0.9% Normal Saline (1000mL) 1,000 ML 999 ML IV (17:24)
[2024-03-21] MEDS: Acetaminophen 500 MG Tablet 1000 MG PO (17:25)
[2024-03-21 17:28] LABS: Mucous, Urine 0 SEEN /hpf (<or=2+); Squamous Epithelial Cells - UA 0 SEEN /hpf (0-5)
[2024-03-21 17:34] LABS: Hematocrit 38.3 % (40-54); Hemoglobin 12.7 g/dL (13.0-16.5); Mean Corp Hgb Conc 33.2 g/dL (32-36); Mean Corpuscular Hgb 28.8 pg (27.0-32.0); Mean Corpuscular Volume 86.8 fL (80-94); Mean Platelet Vol. 10.8 fl (6.2-12.0); POSITIVE DIFFERENTIAL YES; Platelet Count 181 K/mm3 (150-450); RBC Distribution Width CV 13.8 % (11.6-14.6); RBC Distribution Width SD 44.7 fl (35.1-43.9); Red Blood Count 4.41 M/mm3 (4.6-6.2); White Blood Count 12.6 K/mm3 (4.4-11.0)
--- NOTE | 2024-03-21 17:35 | RAD_ITS ---
STUDY: X-RAY CHEST REASON FOR EXAM: Male, 68 years old. Cough TECHNIQUE: AP portable view of the chest. COMPARISON: January 04, 2024 FINDINGS: The lungs are clear and expanded. There is no demonstrated pleural abnormality. Sternal cerclage wires are present from a prior sternotomy. Normal mediastinum and starla. Normal visualized pulmonary arteries. Normal visualized aortic arch and descending thoracic aorta. Normal visualized thoracic spine. Normal visualized ribs, clavicles, and shoulders. There is no demonstrated abnormality of the visualized soft tissue structures of the upper abdomen. RAD/Chest 1 View (Portable) IMPRESSION: No acute cardiopulmonary disease. Electronically Signed: Delgado Quach MD at 18:59 EST ,
[2024-03-21 17:36] LABS: Differential Indicated MANUAL DIFF
[2024-03-21 17:44] LABS: International Normalized Ratio 1.1; Partial Thromboplast Time 32.6 Seconds (24.1-36.2); Prothrombin Time (Protime)PT. 14.3 SECONDS (11.7-14.9)
[2024-03-21 17:47] LABS: Color, Urine Yellow (Yellow); Glucose, Dipstick Normal (Normal); Ketone-Dipstick 15 mg/dl (Negative); Leukocyte Esterase-Dipstick 100 /ul (Negative); Nitrite-Dipstick Positive (Negative); Occult Blood-Urine 50 /ul (Negative); Protein-Dipstick 30 mg/dl (Negative); Urine Bilirubin Dipstick Negative (Negative); Urine Clarity Sl. Cloudy (Clear); Urine Urobilinogen Normal (Normal)
[2024-03-21 17:48] LABS: ALB/GLOB Ratio 0.7 RATIO (0.9-2.4); AST(SGOT) 15 U/L (15-37); Alanine Aminotransfer ALT/SGPT 18 U/L (16-61); Alkaline Phosphatase 71 U/L (45-117); Anion Gap 9 (5-15); BUN 16 mg/dL (7-18); BUN/Creat Ratio 13.9 RATIO (10-20); Calcium,Total 8.6 mg/dL (8.5-10.1); Chloride 100 mmol/L (98-107); Creatinine, Serum 1.15 mg/dL (0.70-1.30); EST Glomerular Filtration Rate 67 mL/min (>60); Est Glom Filt Rate - Afr Amer 81 mL/min (>60); Estimated Creatinine Clearance 78.54 ml/min; Globulin 4.1 g/dL (2.2-4.2); Glucose 100 mg/dL (74-106); Potassium 3.4 mmol/L (3.5-5.1); Protein, Total 7.1 g/dL (6.4-8.2); Sodium Level 134 mmol/L (136-145)
[2024-03-21 18:07] LABS: Basophil% 12.6 % (0-1); Lymphocyte 8 % (19-41); Metamyelocyte 1 % (0-1); Monocyte 10 % (0-10); Neutrophil-Segmented 81 % (47-70); Total Cells Counted 100 (MANUAL DIFF)
[2024-03-21 18:09] LABS: Absolute Neutrophil Count 10.2 X10^3/uL (2.0-7.7); Eosinophil# 0.02 X10^3/uL
[2024-03-21 18:10] LABS: Anisocytosis RARE; Lactic Acid 1.2 mmol/L (0.4-1.9); Platelet Estimate ADEQUATE (ADEQ); Red Cell Morphology NORM C+C NORMAL (NORM C&C)
[2024-03-21 18:13] VITALS: BP 134/65; PULSE 83; RESP 19; TEMP 37.3; O2SAT 93; O2SAT 98
[2024-03-21 18:36] LABS: White Blood Cells 25-50 SEEN /hpf (0-5)
[2024-03-21 18:37] LABS: Bacteria 2+ /hpf (None Seen); Red Blood Cells-Urine 0-5 SEEN /hpf (0-5)
[2024-03-21 19:00] VITALS: BP 120/66; PULSE 80; RESP 18; TEMP 37.6; O2SAT 95
[2024-03-21] MEDS: Ceftriaxone 1 GM/50 ML BAG IV (19:18)
[2024-03-21 19:21] VITALS: BP 120/66; PULSE 80; RESP 18; TEMP 37.6; O2SAT 97
[2024-03-21 20:00] VITALS: BP 122/82; PULSE 74; RESP 16; TEMP 37.3; O2SAT 97
[2024-03-22 15:13] LABS: Pathologist Review Reviewed
--- NOTE | 2024-03-23 09:12 | ED.RN ---
Urine culture called from the lab. Dr Saavedra sent a Rx to [facility] for nitrofurantoin. Pt was called and advised to stop the Bactrim and start the new med. Pt stated that he is feeling better.
== END 2024-03-21 20:54 | disposition home or self-care (01) ==
PROVIDERS: Nurse Practitioner; Emergency Provider Emergency Medicine; PCP Student in an Organized Health Care Education/Training Program; Visit Provider Emergency Medicine
DX: N39.0 Urinary tract infection, site not specified (principal); I50.9 Heart failure, unspecified; I11.0 Hypertensive heart disease with heart failure; G11.4 Hereditary spastic paraplegia; I25.10 Atherosclerotic heart disease of native coronary artery without angina pectoris; E78.5 Hyperlipidemia, unspecified; K21.9 Gastro-esophageal reflux disease without esophagitis; R50.9 Fever, unspecified
CPT/HCPCS: 71045; 80053; 81001; 83605; 85025; 85610; 85730; 87040; 87077; 87086; 87088; 87186; 87631; 93005; 96361; 96365; 99285; J7030; P9612; A4216